=== PATIENT | male | born 1935 | race Two or more races ===

== ENCOUNTER 2017-11-04 09:21 | Inpatient (IN) | payer MEDICARE ==
[~2017-11-04] VITALS: Ht 149.9 cm; Wt 44.9 kg
[2017-11-04 11:04] LABS: Basophils # (auto) 0.1 uL; Basophils % (auto) 0.5 % (0.0-2.0); Eosinophils # (auto) 0.1 uL; Eosinophils % (auto) 1.2 % (0.0-7.0); Hematocrit 37.9 % (41.0-53.0); Hemoglobin 12.5 g/dL (13.5-17.5); Lymphocytes # (auto) 1.3 uL; Mean Corpuscular Hgb Conc. 32.9 g/dL (32.0-36.0); Mean Corpuscular Volume 88.2 fL (80.0-100.0); Monocytes % (auto) 9.8 % (0.0-12.0); Neutrophils # (auto) 8.1 uL; Neutrophils % (auto) 76.5 % (37.0-80.0); Nucleated Red Blood Cells % 0.1 %; Platelet Count (auto) 241 10^3/uL (140-450); Red Cell Distribution Width 15.2 % (11.8-14.3); White Blood Cell 10.6 10^3/uL (4.4-10.8)
[2017-11-04 11:14] LABS: INR 1.04 (0.9-1.15); Partial Thromboplastin Time 32.3 sec (23.78-33.04); Prothrombin Time 11.1 sec (9.27-12.13)
[2017-11-04 11:32] LABS: Albumin 3.3 g/dL (3.4-5.0); BUN/Creatinine Ratio 12.4; Bilirubin, Total 0.5 mg/dL (0.2-1.0); Calcium 8.7 mg/dL (8.5-10.1); Potassium 4.1 mmol/L (3.5-5.1); Total Protein 7.3 g/dL (6.4-8.2)
[2017-11-04 13:36] LABS: Urine Bacteria MOD /hpf (None Seen); Urine Blood Negative /uL (Negative); Urine Mucus FEW (None Seen); Urine Specific Gravity 1.018 (1.001-1.035); Urine WBC 37 /hpf (0 - 3)
[2017-11-04] MEDS ORDERED: DOCUSATE SOD 100 MG CAP PO PRN (14:45)
[2017-11-04] MEDS ORDERED: ACETAMINOPHEN 325 MG TAB PO PRN (14:45)
[2017-11-04] MEDS ORDERED: NITROGLYCERIN 0.4 MG SL TAB SL PRN (14:45)
[2017-11-04] MEDS ORDERED: MORPHINE SULF(PF) 0.5MG/ML 10ML VIAL IV PRN (14:45)
[2017-11-04] MEDS ORDERED: ASPirin-EC 81 mg tab PO ONE (14:45)
[2017-11-04] MEDS ORDERED: ONDANSETRON HCL 4 MG/2 ML VIAL IV PRN (14:45)
[2017-11-04] MEDS ORDERED: HYDROcodone-ACET 5/325MG TAB PO PRN (14:45)
[2017-11-04] MEDS ORDERED: TEMAZEPAM 15 MG CAP PO PRN (14:45)
[2017-11-04] MEDS ORDERED: FUROSEMIDE 40 MG/4 ML VIAL IV ONE (15:00)
[2017-11-04] MEDS ORDERED: LEVOFLOXACIN 500MG 100 ML IV ONE ×2 (15:00→15:15)
[2017-11-04] MEDS ORDERED: POTASSIUM CHL 10 Meq TABLET PO ONE (15:00)
[2017-11-04 17:35] VITALS: BP 131/74
[2017-11-04] MEDS ORDERED: TICA90TA PO (21:00)
[2017-11-04] MEDS ORDERED: ATO40T PO (21:00)
[2017-11-04] MEDS ORDERED: ASPI81CH43 PO (21:00)
[2017-11-04 21:50] VITALS: BP 141/67
[2017-11-04] MEDS ORDERED: [UNRECOGNIZED DRUG - REMARK] PO SCH (22:00)
[2017-11-04] MEDS: SPIRONOLACTONE 25 MG TAB PO SCH (22:12)
[2017-11-04] MEDS: SODIUM CHLOR 0.9% PF (SALINE LOCK) 10ML VIAL/SYR IV SCH (22:12)
[2017-11-04] MEDS: TICAGRELOR 90 MG TAB PO SCH (22:13)
[2017-11-04] MEDS: ATORVASTATIN 20 MG TAB PO SCH (22:13)
[2017-11-04] MEDS: ENALAPRIL MALEATE 2.5 MG TAB PO SCH (22:13)
[2017-11-05] VITALS (7 sets, daily range): BP systolic 122–131; BP diastolic 59–75
[2017-11-05] MEDS: SODIUM CHLOR 0.9% PF (SALINE LOCK) 10ML VIAL/SYR IV SCH ×3 (05:45→22:56)
[2017-11-05 06:32] LABS: Basophils # (auto) 0.1 uL; Basophils % (auto) 0.6 % (0.0-2.0); Eosinophils # (auto) 0.2 uL; Eosinophils % (auto) 2.1 % (0.0-7.0); Hematocrit 35.6 % (41.0-53.0); Lymphocytes % (auto) 11.5 % (10.0-50.0); Mean Corpuscular Hemoglobin 29.3 pg (28.0-32.0); Mean Corpuscular Hgb Conc. 33.6 g/dL (32.0-36.0); Mean Corpuscular Volume 87.3 fL (80.0-100.0); Monocytes # (auto) 0.8 uL; Monocytes % (auto) 9.2 % (0.0-12.0); Neutrophils # (auto) 6.8 uL; Neutrophils % (auto) 76.6 % (37.0-80.0); Platelet Count (auto) 211 10^3/uL (140-450); Red Blood Cells 4.08 10^6/uL (4.5-5.90); Red Cell Distribution Width 14.9 % (11.8-14.3); White Blood Cell 8.9 10^3/uL (4.4-10.8)
[2017-11-05 06:56] LABS: Albumin 3.2 g/dL (3.4-5.0); BUN/Creatinine Ratio 15.2; Bilirubin, Total 0.6 mg/dL (0.2-1.0); Calcium 8.5 mg/dL (8.5-10.1); Potassium 3.6 mmol/L (3.5-5.1); Total Protein 6.6 g/dL (6.4-8.2)
[2017-11-05] MEDS ORDERED: FUROSEMIDE 40 MG/4 ML VIAL IV SCH (10:00)
[2017-11-05] MEDS ORDERED: LEVOFLOXACIN 500MG 100 ML IV SCH (10:00)
[2017-11-05] MEDS: POTASSIUM CHL 10 Meq TABLET PO SCH (10:43)
[2017-11-05] MEDS: ENALAPRIL MALEATE 2.5 MG TAB PO SCH ×2 (10:44→22:55)
[2017-11-05] MEDS: SPIRONOLACTONE 25 MG TAB PO SCH ×2 (10:44→22:56)
[2017-11-05] MEDS: ASPirin-EC 81 mg tab PO SCH (10:44)
[2017-11-05] MEDS: TICAGRELOR 90 MG TAB PO SCH ×2 (10:44→22:00)
[2017-11-05] MEDS: MULTIPLE VITAMIN TAB PO SCH (10:44)
[2017-11-05 18:51] LABS: Calcium 8.3 mg/dL (8.5-10.1); Potassium 3.8 mmol/L (3.5-5.1)
[2017-11-05] MEDS: predniSONE 20 MG TAB PO SCH (19:10)
[2017-11-05] MEDS: ALBUTEROL SULF 2.5 MG/0.5ML(0.5%) NEB SOLN NEB SCH (19:36)
[2017-11-05] MEDS: BUDESONIDE (INHALATION) 0.5 MG/2 ML NEB NEB SCH (19:37)
[2017-11-05] MEDS: IPRATROPIUM BROM 0.5 MG/2.5ML INH SOL NEB SCH (19:37)
[2017-11-05] MEDS: ATORVASTATIN 20 MG TAB PO SCH (22:55)
[2017-11-06] VITALS (8 sets, daily range): BP systolic 115–134; BP diastolic 24–72
[2017-11-06] MEDS: IPRATROPIUM BROM 0.5 MG/2.5ML INH SOL NEB SCH ×4 (00:35→19:48)
[2017-11-06] MEDS: ALBUTEROL SULF 2.5 MG/0.5ML(0.5%) NEB SOLN NEB SCH ×4 (00:35→19:47)
[2017-11-06] MEDS: BUDESONIDE (INHALATION) 0.5 MG/2 ML NEB NEB SCH ×2 (05:53→19:48)
[2017-11-06] MEDS: SODIUM CHLOR 0.9% PF (SALINE LOCK) 10ML VIAL/SYR IV SCH ×3 (06:00→21:59)
[2017-11-06] MEDS ORDERED: LEVOFLOXACIN 500 MG TAB PO SCH (10:00)
[2017-11-06] MEDS: cefTRIAXone 1GM/10ml IVPUSH 10 ML IV SCH (10:06)
[2017-11-06] MEDS: ENALAPRIL MALEATE 2.5 MG TAB PO SCH ×2 (10:07→22:00)
[2017-11-06] MEDS: predniSONE 20 MG TAB PO SCH (10:08)
[2017-11-06] MEDS: POTASSIUM CHL 10 Meq TABLET PO SCH (10:08)
[2017-11-06] MEDS: MULTIPLE VITAMIN TAB PO SCH (10:09)
[2017-11-06] MEDS: SPIRONOLACTONE 25 MG TAB PO SCH ×2 (10:09→21:59)
[2017-11-06] MEDS: ASPirin-EC 81 mg tab PO SCH (10:09)
[2017-11-06] MEDS: TICAGRELOR 90 MG TAB PO SCH ×2 (10:09→22:00)
[2017-11-06 11:11] LABS: Basophils # (auto) 0 uL; Basophils % (auto) 0.1 % (0.0-2.0); Eosinophils # (auto) 0 uL; Hematocrit 37.1 % (41.0-53.0); Hemoglobin 12.6 g/dL (13.5-17.5); Lymphocytes # (auto) 0.5 uL; Lymphocytes % (auto) 4.3 % (10.0-50.0); Mean Corpuscular Hemoglobin 29.8 pg (28.0-32.0); Mean Corpuscular Hgb Conc. 33.9 g/dL (32.0-36.0); Monocytes # (auto) 0.4 uL; Monocytes % (auto) 4.1 % (0.0-12.0); Neutrophils # (auto) 9.9 uL; Neutrophils % (auto) 91.5 % (37.0-80.0); Platelet Count (auto) 237 10^3/uL (140-450); Red Blood Cells 4.21 10^6/uL (4.5-5.90); White Blood Cell 10.8 10^3/uL (4.4-10.8)
[2017-11-06 11:24] LABS: Calcium 8.7 mg/dL (8.5-10.1); Potassium 3.7 mmol/L (3.5-5.1)
[2017-11-06] MEDS: ATORVASTATIN 20 MG TAB PO SCH (21:59)
[2017-11-07 05:23] VITALS: BP 119/64
[2017-11-07 05:59] LABS: Basophils # (auto) 0 uL; Basophils % (auto) 0.1 % (0.0-2.0); Eosinophils # (auto) 0 uL; Hematocrit 34.3 % (41.0-53.0); Hemoglobin 11.6 g/dL (13.5-17.5); Lymphocytes # (auto) 0.6 uL; Lymphocytes % (auto) 3.4 % (10.0-50.0); Mean Corpuscular Hemoglobin 29.2 pg (28.0-32.0); Mean Corpuscular Hgb Conc. 33.8 g/dL (32.0-36.0); Mean Corpuscular Volume 86.3 fL (80.0-100.0); Monocytes # (auto) 0.8 uL; Monocytes % (auto) 4.4 % (0.0-12.0); Neutrophils % (auto) 92.1 % (37.0-80.0); Platelet Count (auto) 230 10^3/uL (140-450); Red Blood Cells 3.97 10^6/uL (4.5-5.90); Red Cell Distribution Width 14.8 % (11.8-14.3); White Blood Cell 18.4 10^3/uL (4.4-10.8)
[2017-11-07 06:14] LABS: BUN/Creatinine Ratio 19.7; Calcium 8.7 mg/dL (8.5-10.1)
[2017-11-07] MEDS: SODIUM CHLOR 0.9% PF (SALINE LOCK) 10ML VIAL/SYR IV SCH ×2 (06:23→09:25)
[2017-11-07] MEDS: IPRATROPIUM BROM 0.5 MG/2.5ML INH SOL NEB SCH ×2 (07:10→12:27)
[2017-11-07] MEDS: ALBUTEROL SULF 2.5 MG/0.5ML(0.5%) NEB SOLN NEB SCH ×2 (07:10→12:26)
[2017-11-07] MEDS: BUDESONIDE (INHALATION) 0.5 MG/2 ML NEB NEB SCH (07:11)
[2017-11-07 07:30] VITALS: BP 125/66
[2017-11-07 09:00] VITALS: BP 125/66
[2017-11-07] MEDS: ENALAPRIL MALEATE 2.5 MG TAB PO SCH (09:26)
[2017-11-07] MEDS: predniSONE 20 MG TAB PO SCH (09:26)
[2017-11-07] MEDS: cefTRIAXone 1GM/10ml IVPUSH 10 ML IV SCH (09:26)
[2017-11-07] MEDS: ASPirin-EC 81 mg tab PO SCH (09:27)
[2017-11-07] MEDS: MULTIPLE VITAMIN TAB PO SCH (09:27)
[2017-11-07] MEDS: POTASSIUM CHL 10 Meq TABLET PO SCH (09:27)
[2017-11-07] MEDS: SPIRONOLACTONE 25 MG TAB PO SCH (09:27)
[2017-11-07] MEDS: TICAGRELOR 90 MG TAB PO SCH (09:28)
[2017-11-07] MEDS ORDERED: FUROSEMIDE 40 MG TAB PO SCH (10:00)
[2017-11-07 13:00] VITALS: BP 126/62
[2017-11-07 14:08] VITALS: BP 125/66
== END 2017-11-07 15:00 | disposition home or self-care (01) | DRG 291 ==
LOC: ER 09:21 → TELE 09:22 → TELE-WESTW 17:06
PROVIDERS: ADMIT Internal Medicine; ATTEND Internal Medicine Pulmonary Disease
DX: I50.43 Acute on chronic combined systolic (congestive) and diastolic (congestive) heart failure (principal); J96.00 Acute respiratory failure, unspecified whether with hypoxia or hypercapnia; J44.1 Chronic obstructive pulmonary disease with (acute) exacerbation; N39.0 Urinary tract infection, site not specified; E44.0 Moderate protein-calorie malnutrition; I69.351 Hemiplegia and hemiparesis following cerebral infarction affecting right dominant side; N18.3 Chronic kidney disease, stage 3 (moderate); I25.10 Atherosclerotic heart disease of native coronary artery without angina pectoris; I25.5 Ischemic cardiomyopathy; I73.9 Peripheral vascular disease, unspecified; R00.1 Bradycardia, unspecified; B96.20 Unspecified Escherichia coli [E. coli] as the cause of diseases classified elsewhere; I70.0 Atherosclerosis of aorta; D63.8 Anemia in other chronic diseases classified elsewhere; E78.5 Hyperlipidemia, unspecified; I25.2 Old myocardial infarction; Z68.20 Body mass index [BMI] 20.0-20.9, adult; Z95.5 Presence of coronary angioplasty implant and graft; Z88.8 Allergy status to other drugs, medicaments and biological substances; Z88.2 Allergy status to sulfonamides; Z79.82 Long term (current) use of aspirin; Z79.899 Other long term (current) drug therapy
CPT/HCPCS: 36415; 36600; 71045; 71046; 78582; 80048; 80053; 81001; 82805; 83880; 84484; 85025; 85610; 85730; 87086; 87088; 87186; 93005; 93306; 94640; 96365; 96375; J1956

== ENCOUNTER → 2017-11-19 | Outpatient (CLI) | payer MEDICARE ==
[~2017-11-19] MED LIST: ASPI81CH43 PO; ATO40T PO; TICA90TA PO
[2017-11-19 13:05] LABS: BUN/Creatinine Ratio 22.4; Potassium 3.5 mmol/L (3.5-5.1)
== END | disposition home or self-care (01) ==
LOC: LAB 11:43
PROVIDERS: ATTEND Internal Medicine Cardiovascular Disease
DX: I25.5 Ischemic cardiomyopathy (principal); I25.10 Atherosclerotic heart disease of native coronary artery without angina pectoris; E78.5 Hyperlipidemia, unspecified; I50.43 Acute on chronic combined systolic (congestive) and diastolic (congestive) heart failure; N18.3 Chronic kidney disease, stage 3 (moderate); Z79.899 Other long term (current) drug therapy
CPT/HCPCS: 36415; 80048; 83880

== ENCOUNTER → 2018-01-23 | Outpatient (CLI) | payer MEDICARE ==
[~2018-01-23] MED LIST changes: +ALBUTEROL SULF 2.5 MG/0.5ML(0.5%) NEB SOLN ONE
== END | disposition home or self-care (01) ==
LOC: RT 08:35
PROVIDERS: ATTEND Internal Medicine Pulmonary Disease
DX: J44.9 Chronic obstructive pulmonary disease, unspecified (principal)
CPT/HCPCS: 94060

== ENCOUNTER → 2018-02-03 | Outpatient (CLI) | payer MEDICARE ==
[~2018-02-03] MED LIST changes: -ALBUTEROL SULF 2.5 MG/0.5ML(0.5%) NEB SOLN ONE
[2018-02-03 13:17] LABS: Alanine Aminotransferase 27 U/L (16-61); Albumin 3.4 g/dL (3.4-5.0); Alkaline Phosphatase 125 U/L (45-117); Aspartate Aminotransferase 21 U/L (15-37); Bilirubin, Direct < 0.1 mg/dL (0-0.2); Bilirubin, Total 0.3 mg/dL (0.2-1.0); Total Protein 7.2 g/dL (6.4-8.2)
== END | disposition home or self-care (01) ==
LOC: LAB 12:20
PROVIDERS: ATTEND Internal Medicine
DX: I70.218 Atherosclerosis of native arteries of extremities with intermittent claudication, other extremity (principal); I25.5 Ischemic cardiomyopathy; J44.9 Chronic obstructive pulmonary disease, unspecified; Z88.0 Allergy status to penicillin; Z88.2 Allergy status to sulfonamides
CPT/HCPCS: 36415; 80076

== ENCOUNTER → 2018-03-06 | Outpatient (CLI) | payer MEDICARE | END | disposition home or self-care (01) | LOC: XY 08:47 | PROVIDERS: ATTEND Internal Medicine | DX: I77.1 Stricture of artery (principal); I73.9 Peripheral vascular disease, unspecified | CPT/HCPCS: 93925 ==

== ENCOUNTER 2018-03-19 09:41 | Inpatient (IN) | payer MEDICARE ==
[~2018-03-19] VITALS: Ht 149.9 cm; Wt 26.8 kg
[~2018-03-19 09:41] MED LIST changes: +CLOP75TA28 PO; +ENAL2.5T PO; +SPIR25TA88 PO; -TICA90TA PO
[2018-03-19] MEDS ORDERED: MIDAZOLAM HCL 1MG/1ML-2 ML VIAL ONE ×2 (12:22→14:07)
[2018-03-19] MEDS ORDERED: fentaNYL CITRATE 100 MCG/2 ML VL ONE (12:22)
[2018-03-19] MEDS ORDERED: SODIUM CHL 0.9% 50 ML ONE (12:29)
[2018-03-19] MEDS ORDERED: ANGIOMAX 250 MG VIAL IV ONE (12:29)
[2018-03-19] MEDS ORDERED: IODIXANOL 320MG/ML 100ML BTL IV ONE ×2 (13:35→14:41)
[2018-03-19] MEDS ORDERED: ONDANSETRON HCL 4 MG/2 ML VIAL IV PRN (15:00)
[2018-03-19] MEDS ORDERED: ACETAMINOPHEN 500 MG TAB PO PRN (15:00)
[2018-03-19] MEDS ORDERED: MORPHINE SULFATE 4 MG/ML SYR/VIAL IV PRN ×2 (15:00)
[2018-03-19] MEDS ORDERED: HYDROcodone-ACET 5/325MG TAB PO PRN (15:00)
[2018-03-19 18:32] VITALS: BP 154/96
[2018-03-19 22:00] VITALS: BP 118/60
[2018-03-19] MEDS: SPIRONOLACTONE 25 MG TAB PO SCH (23:45)
[2018-03-19] MEDS: ATORVASTATIN 20 MG TAB PO SCH (23:45)
[2018-03-19] MEDS: ENALAPRIL MALEATE 2.5 MG TAB PO SCH (23:45)
[2018-03-20 05:00] VITALS: BP 120/63
[2018-03-20 07:34] VITALS: BP 139/61
[2018-03-20 07:44] LABS: Calcium 8.6 mg/dL (8.5-10.1); Potassium 3.6 mmol/L (3.5-5.1)
[2018-03-20 07:46] LABS: BUN/Creatinine Ratio 15.2
[2018-03-20 08:00] VITALS: BP 139/61
[2018-03-20 08:54] LABS: Basophils # (auto) 0 uL; Basophils % (auto) 0.2 % (0.0-2.0); Eosinophils # (auto) 0.1 uL; Eosinophils % (auto) 1.2 % (0.0-7.0); Hematocrit 39.5 % (41.0-53.0); Hemoglobin 12.7 g/dL (13.5-17.5); Lymphocytes # (auto) 1.2 uL; Lymphocytes % (auto) 12.1 % (10.0-50.0); Mean Corpuscular Hemoglobin 27.5 pg (28.0-32.0); Mean Corpuscular Hgb Conc. 32.2 g/dL (32.0-36.0); Mean Corpuscular Volume 85.5 fL (80.0-100.0); Monocytes # (auto) 0.7 uL; Monocytes % (auto) 7.5 % (0.0-12.0); Neutrophils # (auto) 7.7 uL; Platelet Count (auto) 176 10^3/uL (140-450); Red Blood Cells 4.62 10^6/uL (4.5-5.90); White Blood Cell 9.8 10^3/uL (4.4-10.8)
[2018-03-20] MEDS: CLOPIDOGREL BISULFATE 75 MG TAB PO SCH (09:59)
[2018-03-20] MEDS: SPIRONOLACTONE 25 MG TAB PO SCH ×2 (10:00→23:27)
[2018-03-20] MEDS: ENALAPRIL MALEATE 2.5 MG TAB PO SCH ×2 (10:00→23:28)
[2018-03-20] MEDS: ASPirin 81 mg TAB PO SCH (10:00)
[2018-03-20 11:29] VITALS: BP 124/66
[2018-03-20 16:44] VITALS: BP 132/66
[2018-03-20 22:00] VITALS: BP 116/56
[2018-03-20] MEDS: ATORVASTATIN 20 MG TAB PO SCH (23:27)
[2018-03-21 04:50] VITALS: BP 91/54
[2018-03-21 04:52] VITALS: BP 108/48
[2018-03-21 05:31] LABS: Basophils # (auto) 0 uL; Basophils % (auto) 0.5 % (0.0-2.0); Eosinophils # (auto) 0.2 uL; Eosinophils % (auto) 2.3 % (0.0-7.0); Hematocrit 36.6 % (41.0-53.0); Hemoglobin 12.2 g/dL (13.5-17.5); Lymphocytes # (auto) 1.4 uL; Lymphocytes % (auto) 16.2 % (10.0-50.0); Mean Corpuscular Hemoglobin 28.2 pg (28.0-32.0); Mean Corpuscular Hgb Conc. 33.2 g/dL (32.0-36.0); Mean Corpuscular Volume 84.8 fL (80.0-100.0); Monocytes # (auto) 0.9 uL; Monocytes % (auto) 10.4 % (0.0-12.0); Neutrophils # (auto) 6.1 uL; Neutrophils % (auto) 70.6 % (37.0-80.0); Platelet Count (auto) 171 10^3/uL (140-450); Red Blood Cells 4.32 10^6/uL (4.5-5.90); Red Cell Distribution Width 17.1 % (11.8-14.3); White Blood Cell 8.6 10^3/uL (4.4-10.8)
[2018-03-21 05:58] LABS: Albumin 3.1 g/dL (3.4-5.0); BUN/Creatinine Ratio 13.1; Calcium 8.1 mg/dL (8.5-10.1); Potassium 3.6 mmol/L (3.5-5.1)
[2018-03-21 06:01] LABS: Bilirubin, Total 0.6 mg/dL (0.2-1.0); Total Protein 6.5 g/dL (6.4-8.2)
[2018-03-21 07:30] VITALS: BP 109/55
[2018-03-21 07:47] LABS: INR 1.04 (0.9-1.15); Prothrombin Time 11.1 sec (9.27-12.13)
[2018-03-21 08:00] VITALS: BP 109/55
[2018-03-21] MEDS: ASPirin 81 mg TAB PO SCH (09:02)
[2018-03-21] MEDS: ENALAPRIL MALEATE 2.5 MG TAB PO SCH ×2 (09:02→21:21)
[2018-03-21] MEDS: SPIRONOLACTONE 25 MG TAB PO SCH ×2 (09:02→21:19)
[2018-03-21] MEDS: CLOPIDOGREL BISULFATE 75 MG TAB PO SCH (09:02)
[2018-03-21] MEDS ORDERED: fentaNYL CITRATE 100 MCG/2 ML VL ONE (09:09)
[2018-03-21] MEDS ORDERED: ANGIOMAX 250 MG VIAL IV ONE ×2 (09:09→11:01)
[2018-03-21] MEDS ORDERED: MIDAZOLAM HCL 1MG/1ML-2 ML VIAL ONE (09:09)
[2018-03-21] MEDS ORDERED: LIDOCAINE 2%HCL (LOCAL ANESTH.) INJ 20ML MDV ONE (09:09)
[2018-03-21] MEDS ORDERED: IODIXANOL 320MG/ML 100ML BTL IV ONE (09:10)
[2018-03-21] MEDS ORDERED: SODIUM CHL 0.9% 50 ML ONE ×2 (09:10→11:01)
[2018-03-21 13:46] LABS: Urine Bacteria FEW /hpf (None Seen); Urine Blood TRACE /uL (Negative); Urine Mucus FEW (None Seen); Urine WBC 4 /hpf (0 - 3)
[2018-03-21 13:53] LABS: Urine Specific Gravity > 1.050 (1.001-1.035)
[2018-03-21 16:48] VITALS: BP 145/67
[2018-03-21] MEDS: ATORVASTATIN 20 MG TAB PO SCH (21:18)
[2018-03-21 21:36] VITALS: BP 114/54
[2018-03-22 05:11] VITALS: BP 124/60
[2018-03-22 08:00] VITALS: BP 135/68
[2018-03-22 09:00] VITALS: BP 135/68
[2018-03-22] MEDS: CLOPIDOGREL BISULFATE 75 MG TAB PO SCH (09:09)
[2018-03-22] MEDS: SPIRONOLACTONE 25 MG TAB PO SCH (09:10)
[2018-03-22] MEDS: ENALAPRIL MALEATE 2.5 MG TAB PO SCH (09:10)
[2018-03-22] MEDS: ASPirin 81 mg TAB PO SCH (09:10)
[2018-03-22 13:11] VITALS: BP 134/59
== END 2018-03-22 14:00 | disposition home or self-care (01) | DRG 271 ==
LOC: CATH 09:41 → TELE-WESTW 09:42
PROVIDERS: ADMIT Internal Medicine; ATTEND Internal Medicine
PROC: 047N3D1 Dilation of Left Popliteal Artery with Intraluminal Device, using Drug-Coated Balloon, Percutaneous Approach (ICD-10-PCS; principal; 2018-03-19)
PROC: 04CL3ZZ Extirpation of Matter from Left Femoral Artery, Percutaneous Approach (ICD-10-PCS; 2018-03-19)
PROC: 047L3D1 Dilation of Left Femoral Artery with Intraluminal Device, using Drug-Coated Balloon, Percutaneous Approach (ICD-10-PCS; 2018-03-19)
PROC: 04CN3ZZ Extirpation of Matter from Left Popliteal Artery, Percutaneous Approach (ICD-10-PCS; 2018-03-19)
PROC: 04CS3ZZ Extirpation of Matter from Left Posterior Tibial Artery, Percutaneous Approach (ICD-10-PCS; 2018-03-19)
PROC: B41G1ZZ Fluoroscopy of Left Lower Extremity Arteries using Low Osmolar Contrast (ICD-10-PCS; 2018-03-19)
PROC: B41F1ZZ Fluoroscopy of Right Lower Extremity Arteries using Low Osmolar Contrast (ICD-10-PCS; 2018-03-19)
PROC: 047K3Z1 Dilation of Right Femoral Artery using Drug-Coated Balloon, Percutaneous Approach (ICD-10-PCS; 2018-03-21)
PROC: 047C3Z1 Dilation of Right Common Iliac Artery using Drug-Coated Balloon, Percutaneous Approach (ICD-10-PCS; 2018-03-21)
PROC: 047M3Z1 Dilation of Right Popliteal Artery using Drug-Coated Balloon, Percutaneous Approach (ICD-10-PCS; 2018-03-21)
PROC: 04CK3ZZ Extirpation of Matter from Right Femoral Artery, Percutaneous Approach (ICD-10-PCS; 2018-03-21)
PROC: 04CM3ZZ Extirpation of Matter from Right Popliteal Artery, Percutaneous Approach (ICD-10-PCS; 2018-03-21)
PROC: 04CC3ZZ Extirpation of Matter from Right Common Iliac Artery, Percutaneous Approach (ICD-10-PCS; 2018-03-21)
PROC: B41G1ZZ Fluoroscopy of Left Lower Extremity Arteries using Low Osmolar Contrast (ICD-10-PCS; 2018-03-21)
PROC: B41F1ZZ Fluoroscopy of Right Lower Extremity Arteries using Low Osmolar Contrast (ICD-10-PCS; 2018-03-21)
PROC: 3E053PZ Introduction of Platelet Inhibitor into Peripheral Artery, Percutaneous Approach (ICD-10-PCS; 2018-03-21)
DX: I70.211 Atherosclerosis of native arteries of extremities with intermittent claudication, right leg (principal); I74.3 Embolism and thrombosis of arteries of the lower extremities; I99.8 Other disorder of circulatory system; I25.10 Atherosclerotic heart disease of native coronary artery without angina pectoris; J45.909 Unspecified asthma, uncomplicated; I12.9 Hypertensive chronic kidney disease with stage 1 through stage 4 chronic kidney disease, or unspecified chronic kidney disease; N18.9 Chronic kidney disease, unspecified; Z88.0 Allergy status to penicillin; Z88.2 Allergy status to sulfonamides; I70.212 Atherosclerosis of native arteries of extremities with intermittent claudication, left leg
CPT/HCPCS: 36415; 71045; 80048; 80053; 81001; 85025; 85610; 86850; 86900; 86901; 99152; A6257; C2623; G0378; J2250; Q9967

== ENCOUNTER 2018-04-09 07:34 | Emergency (ER) | payer MEDICARE ==
[~2018-04-09] VITALS: Ht 149.9 cm; Wt 45.4 kg
[2018-04-09 09:55] VITALS: BP 151/63
== END 2018-04-09 11:10 | disposition home or self-care (01) ==
LOC: ER 07:39
DX: M25.571 Pain in right ankle and joints of right foot (principal); I25.10 Atherosclerotic heart disease of native coronary artery without angina pectoris; E78.5 Hyperlipidemia, unspecified; I25.2 Old myocardial infarction; I50.9 Heart failure, unspecified; Z88.0 Allergy status to penicillin; Z88.2 Allergy status to sulfonamides; Z79.01 Long term (current) use of anticoagulants; Z79.82 Long term (current) use of aspirin; Z79.899 Other long term (current) drug therapy; Z86.73 Personal history of transient ischemic attack (TIA), and cerebral infarction without residual deficits; Z98.61 Coronary angioplasty status; Z87.891 Personal history of nicotine dependence
CPT/HCPCS: 93971

== ENCOUNTER → 2018-08-07 | Outpatient (CLI) | payer MEDICARE ==
[2018-08-07 08:41] LABS: Calcium 9.4 mg/dL (8.5-10.1)
[2018-08-07 08:48] LABS: Albumin 3.9 g/dL (3.4-5.0); BUN/Creatinine Ratio 15.8; Bilirubin, Total 0.5 mg/dL (0.2-1.0)
== END | disposition home or self-care (01) ==
LOC: LAB 07:57
PROVIDERS: ATTEND Internal Medicine
DX: J44.9 Chronic obstructive pulmonary disease, unspecified (principal); E78.5 Hyperlipidemia, unspecified; I11.0 Hypertensive heart disease with heart failure; I50.9 Heart failure, unspecified; R79.89 Other specified abnormal findings of blood chemistry
CPT/HCPCS: 36415; 80053; 80061; 82550; 83036

== ENCOUNTER → 2018-08-20 | Outpatient (CLI) | payer MEDICARE | END | disposition home or self-care (01) | LOC: LAB 11:12 | PROVIDERS: ATTEND Internal Medicine | DX: E11.9 Type 2 diabetes mellitus without complications (principal) | CPT/HCPCS: 82043 ==

== ENCOUNTER → 2018-09-09 | Outpatient (CLI) | payer MEDICARE | END | disposition home or self-care (01) | LOC: XY 07:38 | PROVIDERS: ATTEND Internal Medicine | DX: I73.9 Peripheral vascular disease, unspecified (principal); M79.605 Pain in left leg | CPT/HCPCS: 93925 ==

== ENCOUNTER → 2019-01-22 | Outpatient (CLI) | payer MEDICARE ==
[2019-01-22 09:07] LABS: Calcium 9.3 mg/dL (8.5-10.1); Potassium 4.4 mmol/L (3.5-5.1)
[2019-01-22 09:10] LABS: BUN/Creatinine Ratio 12.9
== END | disposition home or self-care (01) ==
LOC: LAB 08:10
PROVIDERS: ATTEND Internal Medicine
DX: E11.9 Type 2 diabetes mellitus without complications (principal)
CPT/HCPCS: 36415; 80048; 83036

== ENCOUNTER → 2019-02-13 | Outpatient (CLI) | payer MEDICARE | END | disposition home or self-care (01) | LOC: XYW 07:35 | PROVIDERS: ATTEND Internal Medicine | DX: I08.0 Rheumatic disorders of both mitral and aortic valves (principal); I73.9 Peripheral vascular disease, unspecified; I11.0 Hypertensive heart disease with heart failure; I50.9 Heart failure, unspecified | CPT/HCPCS: 93306 ==

== ENCOUNTER → 2019-03-10 | Outpatient (CLI) | payer MEDICARE ==
[2019-03-10 09:01] LABS: BUN/Creatinine Ratio 9.2; Calcium 9.4 mg/dL (8.5-10.1); Potassium 3.9 mmol/L (3.5-5.1)
== END | disposition home or self-care (01) ==
LOC: LAB 07:55
PROVIDERS: ATTEND Internal Medicine
DX: E11.9 Type 2 diabetes mellitus without complications (principal); I10 Essential (primary) hypertension
CPT/HCPCS: 36415; 80048

== ENCOUNTER → 2019-04-02 | Outpatient (CLI) | payer MEDICARE | END | disposition home or self-care (01) | LOC: LAB 07:54 | PROVIDERS: ATTEND Internal Medicine | DX: E11.9 Type 2 diabetes mellitus without complications (principal); I25.10 Atherosclerotic heart disease of native coronary artery without angina pectoris; I11.0 Hypertensive heart disease with heart failure; I50.9 Heart failure, unspecified; E78.5 Hyperlipidemia, unspecified; I25.2 Old myocardial infarction; Z86.73 Personal history of transient ischemic attack (TIA), and cerebral infarction without residual deficits; Z98.890 Other specified postprocedural states; Z87.891 Personal history of nicotine dependence; Z88.0 Allergy status to penicillin; Z88.2 Allergy status to sulfonamides | CPT/HCPCS: 36415; 83036 ==

== ENCOUNTER 2019-04-11 21:54 | Inpatient (IN) | payer MEDICARE ==
[~2019-04-11] VITALS: Ht 162.6 cm; Wt 54.4 kg
[2019-04-11] MEDS ORDERED: methylPREDNISolone SOD SUCC 125 MG/2 ML VL ONE (22:04)
[2019-04-11] MEDS ORDERED: FUROSEMIDE 20 MG/2 ML VIAL ONE (22:05)
[2019-04-11] MEDS ORDERED: FUROSEMIDE 20 MG/2 ML VIAL IV ONE (22:15)
[2019-04-11] MEDS ORDERED: methylPREDNISolone SOD SUCC 125 MG/2 ML VL IV ONE (22:15)
[2019-04-11 22:24] VITALS: BP 206/114
[2019-04-11 22:27] LABS: Basophils # (auto) 0.2 uL; Mean Corpuscular Hgb Conc. 32.1 g/dL (32.0-36.0); Monocytes # (auto) 1.4 uL
[2019-04-11 22:28] LABS: Eosinophils # (auto) 0.4 uL; Eosinophils % (auto) 2.3 % (0.0-7.0); Hematocrit 45.3 % (41.0-53.0); Hemoglobin 14.6 g/dL (13.5-17.5); Lymphocytes # (auto) 6.3 uL; Lymphocytes % (auto) 38.6 % (10.0-50.0); Mean Corpuscular Hemoglobin 26.8 pg (28.0-32.0); Mean Corpuscular Volume 83.3 fL (80.0-100.0); Monocytes % (auto) 8.6 % (0.0-12.0); Neutrophils # (auto) 8.1 uL; Neutrophils % (auto) 49.5 % (37.0-80.0); Platelet Count (auto) 216 10^3/uL (140-450); Red Blood Cells 5.43 10^6/uL (4.5-5.90); White Blood Cell 16.4 10^3/uL (4.4-10.8)
[2019-04-11 22:47] LABS: Anion Gap 9 (5-15); Blood Urea Nitrogen 16 mg/dL (7-18); Calcium 8.4 mg/dL (8.5-10.1); Carbon Dioxide 19 mmol/L (21-32); Chloride 111 mmol/L (98-107); Glucose 166 mg/dL (74-106); Magnesium 2.4 mg/dL (1.6-2.6); Potassium 4.1 mmol/L (3.5-5.1); Sodium 139 mmol/L (136-145)
[2019-04-11 22:49] LABS: Alanine Aminotransferase 34 U/L (16-61); Aspartate Aminotransferase 37 U/L (15-37); BUN/Creatinine Ratio 11.8; GFR African American 64 mL/min; GFR Non-African American 53 mL/min; INR 1.07 (0.9-1.15); Partial Thromboplastin Time 28.8 sec (23.64-32.05)
[2019-04-11 22:54] LABS: Alkaline Phosphatase 129 U/L (45-117); Bilirubin, Total 0.5 mg/dL (0.2-1.0); Total Protein 7.8 g/dL (6.4-8.2)
[2019-04-11] MEDS ORDERED: ONDANSETRON HCL 4 MG/2 ML VIAL ONE (23:13)
[2019-04-11] MEDS ORDERED: ONDANSETRON HCL 4 MG/2 ML VIAL IV ONE (23:15)
[2019-04-12 00:06] VITALS: BP 131/64
[2019-04-12] MEDS ORDERED: MORPHINE SULFATE 4 MG/ML SYR/VIAL IV PRN (02:00)
[2019-04-12] MEDS ORDERED: ACETAMINOPHEN 325 MG TAB PO PRN (02:00)
[2019-04-12] MEDS ORDERED: NITROGLYCERIN 0.4 MG SL TAB SL PRN (02:00)
[2019-04-12] MEDS ORDERED: DOCUSATE SOD 100 MG CAP PO PRN (02:00)
[2019-04-12] MEDS ORDERED: HYDROcodone-ACET 5/325MG TAB PO PRN (02:00)
[2019-04-12] MEDS ORDERED: ONDANSETRON HCL 4 MG/2 ML VIAL IV PRN (02:00)
[2019-04-12 02:13] LABS: Urine Bacteria MANY /hpf (None Seen); Urine Blood Negative /uL (Negative); Urine Specific Gravity 1.006 (1.001-1.035); Urine WBC 7 /hpf (0 - 3)
[2019-04-12 02:24] VITALS: BP 140/72
[2019-04-12] MEDS: cefTRIAXone 1GM/50ML D5W 50 ML IV SCH ×2 (02:50→10:43)
[2019-04-12] MEDS: AZITHROMYCIN 500MG/ 250ML 250 ML IV SCH ×2 (03:30→10:43)
[2019-04-12] MEDS ORDERED: ENALAPRIL MALEATE 2.5 MG TAB PO SCH (10:00)
[2019-04-12] MEDS: CLOPIDOGREL BISULFATE 75 MG TAB PO SCH (10:41)
[2019-04-12] MEDS: SPIRONOLACTONE 25 MG TAB PO SCH ×2 (10:41→22:01)
[2019-04-12] MEDS: ASPirin 81 mg TAB PO SCH (10:42)
[2019-04-12] MEDS: FUROSEMIDE 40 MG/4 ML VIAL IV SCH ×2 (10:42→22:00)
[2019-04-12] MEDS ORDERED: NITROGLYCERIN 0.2MG/HR TOPICAL PATCH TD ONE (12:30)
[2019-04-12 13:20] VITALS: BP 122/68
[2019-04-12] MEDS ORDERED: MORPHINE SULF INJ 2 MG/ML SYRINGE 1ML IV PRN (13:30)
[2019-04-12 15:03] LABS: Basophils # (auto) 0 uL; Basophils % (auto) 0.2 % (0.0-2.0); Eosinophils # (auto) 0 uL; Hematocrit 43.8 % (41.0-53.0); Lymphocytes # (auto) 0.7 uL; Lymphocytes % (auto) 4.9 % (10.0-50.0); Mean Corpuscular Hemoglobin 26.6 pg (28.0-32.0); Mean Corpuscular Hgb Conc. 31.9 g/dL (32.0-36.0); Mean Corpuscular Volume 83.4 fL (80.0-100.0); Monocytes # (auto) 0.3 uL; Monocytes % (auto) 2.3 % (0.0-12.0); Neutrophils # (auto) 13.4 uL; Neutrophils % (auto) 92.6 % (37.0-80.0); Platelet Count (auto) 187 10^3/uL (140-450); Red Blood Cells 5.26 10^6/uL (4.5-5.90); Red Cell Distribution Width 17.4 % (11.8-14.3); White Blood Cell 14.5 10^3/uL (4.4-10.8)
[2019-04-12 15:25] LABS: BUN/Creatinine Ratio 12.8; Potassium 4.4 mmol/L (3.5-5.1)
[2019-04-12 17:00] VITALS: BP 129/71
[2019-04-12 20:00] VITALS: BP 115/61
[2019-04-12 22:00] VITALS: BP 115/61
[2019-04-13 06:50] LABS: Basophils # (auto) 0 uL; Basophils % (auto) 0.3 % (0.0-2.0); Eosinophils # (auto) 0 uL; Eosinophils % (auto) 0.1 % (0.0-7.0); Hematocrit 40.1 % (41.0-53.0); Hemoglobin 13.5 g/dL (13.5-17.5); Lymphocytes # (auto) 1.6 uL; Lymphocytes % (auto) 9.3 % (10.0-50.0); Mean Corpuscular Hgb Conc. 33.6 g/dL (32.0-36.0); Mean Corpuscular Volume 80.3 fL (80.0-100.0); Monocytes # (auto) 1.2 uL; Neutrophils # (auto) 14.1 uL; Neutrophils % (auto) 83.3 % (37.0-80.0); Nucleated Red Blood Cells % 0.1 %; Platelet Count (auto) 186 10^3/uL (140-450); Red Blood Cells 4.99 10^6/uL (4.5-5.90); White Blood Cell 16.9 10^3/uL (4.4-10.8)
[2019-04-13 07:01] LABS: Albumin 3.7 g/dL (3.4-5.0); Calcium 8.9 mg/dL (8.5-10.1); Magnesium 2.2 mg/dL (1.6-2.6)
[2019-04-13 07:05] LABS: Bilirubin, Total 0.4 mg/dL (0.2-1.0); Total Protein 7.1 g/dL (6.4-8.2)
[2019-04-13] MEDS ORDERED: ADENOSINE 46 MG in GIVE UN-DILUTED 0 ML IV STA (08:14)
[2019-04-13 09:00] VITALS: BP 132/83
[2019-04-13 09:36] VITALS: BP 130/93
[2019-04-13] MEDS: NITROGLYCERIN 0.2MG/HR TOPICAL PATCH TD SCH (10:00)
[2019-04-13] MEDS ORDERED: LOSARTAN POTASSIUM 50 MG TAB PO SCH (10:00)
[2019-04-13] MEDS: cefTRIAXone 1GM/50ML D5W 50 ML IV SCH (10:54)
[2019-04-13] MEDS: ASPirin 81 mg TAB PO SCH (10:54)
[2019-04-13] MEDS: CLOPIDOGREL BISULFATE 75 MG TAB PO SCH (10:54)
[2019-04-13] MEDS: AZITHROMYCIN 500MG/ 250ML 250 ML IV SCH (10:54)
[2019-04-13] MEDS: SPIRONOLACTONE 25 MG TAB PO SCH ×2 (10:54→21:18)
[2019-04-13] MEDS: methylPREDNISolone SOD SUCC 40 MG/ML VL IV SCH ×3 (12:31→23:25)
[2019-04-13 13:00] VITALS: BP 127/69
[2019-04-13 17:00] VITALS: BP 139/85
[2019-04-13 20:10] VITALS: BP 127/69
[2019-04-13 22:00] VITALS: BP 139/77
[2019-04-13] MEDS ORDERED: ATORVASTATIN 20 MG TAB PO SCH (22:00)
[2019-04-14 05:00] VITALS: BP 155/82
[2019-04-14] MEDS: methylPREDNISolone SOD SUCC 40 MG/ML VL IV SCH (06:00)
[2019-04-14 06:43] LABS: BUN/Creatinine Ratio 25.2; Calcium 8.4 mg/dL (8.5-10.1); Magnesium 2.2 mg/dL (1.6-2.6); Potassium 3.9 mmol/L (3.5-5.1)
[2019-04-14 07:16] LABS: Basophils # (auto) 0 uL; Basophils % (auto) 0.1 % (0.0-2.0); Eosinophils # (auto) 0 uL; Hematocrit 41.7 % (41.0-53.0); Hemoglobin 13.4 g/dL (13.5-17.5); Lymphocytes # (auto) 0.7 uL; Mean Corpuscular Hemoglobin 27.1 pg (28.0-32.0); Mean Corpuscular Volume 84.4 fL (80.0-100.0); Monocytes # (auto) 0.2 uL; Monocytes % (auto) 1.5 % (0.0-12.0); Neutrophils # (auto) 11.4 uL; Neutrophils % (auto) 92.4 % (37.0-80.0); Platelet Count (auto) 180 10^3/uL (140-450); Red Blood Cells 4.94 10^6/uL (4.5-5.90); Red Cell Distribution Width 18.6 % (11.8-14.3); White Blood Cell 12.3 10^3/uL (4.4-10.8)
[2019-04-14 08:47] VITALS: BP 132/79
[2019-04-14] MEDS: ASPirin 81 mg TAB PO SCH (09:33)
[2019-04-14] MEDS: cefTRIAXone 1GM/50ML D5W 50 ML IV SCH (09:33)
[2019-04-14] MEDS: CLOPIDOGREL BISULFATE 75 MG TAB PO SCH (09:33)
[2019-04-14] MEDS: SPIRONOLACTONE 25 MG TAB PO SCH (09:33)
[2019-04-14] MEDS: NITROGLYCERIN 0.2MG/HR TOPICAL PATCH TD SCH (09:56)
[2019-04-14] MEDS ORDERED: AZITHROMYCIN 250 MG TAB PO SCH (10:00)
[2019-04-14 11:04] VITALS: BP 132/83
[2019-04-14] MEDS ORDERED: SACUBITRIL-VALSARTAN 24mg/26mg TAB PO SCH (23:00)
== END 2019-04-14 12:15 | disposition home or self-care (01) | DRG 291 ==
LOC: EDBD 21:54 → ER 21:58 → TELE 21:59 → TELE-CENTR 04-12 13:20
PROVIDERS: ADMIT Hospitalist; ATTEND Internal Medicine
PROC: 5A09357 Assistance with Respiratory Ventilation, Less than 24 Consecutive Hours, Continuous Positive Airway Pressure (ICD-10-PCS; principal; 2019-04-11)
DX: I11.0 Hypertensive heart disease with heart failure (principal); J18.9 Pneumonia, unspecified organism; N17.0 Acute kidney failure with tubular necrosis; E87.2 Acidosis; J44.1 Chronic obstructive pulmonary disease with (acute) exacerbation; N39.0 Urinary tract infection, site not specified; I50.43 Acute on chronic combined systolic (congestive) and diastolic (congestive) heart failure; I25.10 Atherosclerotic heart disease of native coronary artery without angina pectoris; T46.4X5A Adverse effect of angiotensin-converting-enzyme inhibitors, initial encounter; D72.829 Elevated white blood cell count, unspecified; R73.03 Prediabetes; I34.0 Nonrheumatic mitral (valve) insufficiency; E78.5 Hyperlipidemia, unspecified; I25.2 Old myocardial infarction; Z86.73 Personal history of transient ischemic attack (TIA), and cerebral infarction without residual deficits; Z87.891 Personal history of nicotine dependence
CPT/HCPCS: 36415; 36600; 71045; 71250; 78452; 80048; 80053; 81001; 82805; 82962; 83735; 83880; 84484; 85025; 85610; 85730; 93005; 93017; 93306; 94660; 96365; 96368; 96375; G0378; J0153; J0696; J2405

== ENCOUNTER → 2019-04-28 | Outpatient (CLI) | payer MEDICARE ==
[2019-04-28 09:10] LABS: Calcium 8.5 mg/dL (8.5-10.1); Potassium 4.4 mmol/L (3.5-5.1)
[2019-04-28 09:14] LABS: BUN/Creatinine Ratio 15.9
== END | disposition home or self-care (01) ==
LOC: LAB 07:36
PROVIDERS: ATTEND Internal Medicine
DX: J44.9 Chronic obstructive pulmonary disease, unspecified (principal); E11.9 Type 2 diabetes mellitus without complications; I50.9 Heart failure, unspecified
CPT/HCPCS: 36415; 80048; 83880

== ENCOUNTER → 2019-05-06 | Outpatient (CLI) | payer MEDICARE ==
[2019-05-06 10:44] LABS: Albumin 3.7 g/dL (3.4-5.0); Bilirubin, Direct 0.1 mg/dL (0-0.2)
[2019-05-06 10:48] LABS: Bilirubin, Total 0.4 mg/dL (0.2-1.0); Total Protein 7.5 g/dL (6.4-8.2)
== END | disposition home or self-care (01) ==
LOC: LAB 10:12
PROVIDERS: ATTEND Internal Medicine
DX: M79.10 Myalgia, unspecified site (principal); E78.5 Hyperlipidemia, unspecified
CPT/HCPCS: 36415; 80076; 82550

== ENCOUNTER → 2019-05-26 | Outpatient (CLI) | payer MEDICARE | END | disposition home or self-care (01) | LOC: LAB 07:48 | PROVIDERS: ATTEND Internal Medicine | DX: M79.10 Myalgia, unspecified site (principal) | CPT/HCPCS: 36415; 82550; 85652 ==

== ENCOUNTER → 2019-06-05 | Outpatient (CLI) | payer MEDICARE | END | disposition home or self-care (01) | LOC: XYW 07:19 | PROVIDERS: ATTEND Internal Medicine | DX: I08.3 Combined rheumatic disorders of mitral, aortic and tricuspid valves (principal); I10 Essential (primary) hypertension | CPT/HCPCS: 93306 ==

== ENCOUNTER 2019-06-19 12:09 | Inpatient (IN) | payer MEDICARE ==
[~2019-06-19] VITALS: Ht 149.9 cm; Wt 48.1 kg
[2019-06-19 13:18] LABS: Basophils # (auto) 0.1 uL; Basophils % (auto) 1.1 % (0.0-2.0); Eosinophils # (auto) 0.2 uL; Eosinophils % (auto) 1.9 % (0.0-7.0); Hematocrit 42.9 % (41.0-53.0); Hemoglobin 14.1 g/dL (13.5-17.5); Lymphocytes # (auto) 1.5 uL; Lymphocytes % (auto) 14.8 % (10.0-50.0); Mean Corpuscular Hemoglobin 27.8 pg (28.0-32.0); Mean Corpuscular Volume 84.3 fL (80.0-100.0); Monocytes # (auto) 0.9 uL; Monocytes % (auto) 9.2 % (0.0-12.0); Neutrophils # (auto) 7.4 uL; Platelet Count (auto) 211 10^3/uL (140-450); Red Blood Cells 5.09 10^6/uL (4.5-5.90); Red Cell Distribution Width 17.7 % (11.8-14.3); White Blood Cell 10.2 10^3/uL (4.4-10.8)
[2019-06-19 13:35] LABS: Albumin 3.7 g/dL (3.4-5.0); Anion Gap 8 (5-15); Blood Urea Nitrogen 20 mg/dL (7-18); Calcium 9.1 mg/dL (8.5-10.1); Carbon Dioxide 21 mmol/L (21-32); Chloride 110 mmol/L (98-107); Glucose 93 mg/dL (74-106); Potassium 4.3 mmol/L (3.5-5.1); Sodium 139 mmol/L (136-145)
[2019-06-19 13:41] LABS: Alanine Aminotransferase 16 U/L (16-61); Alkaline Phosphatase 101 U/L (45-117); Aspartate Aminotransferase 20 U/L (15-37); Bilirubin, Total 0.4 mg/dL (0.2-1.0); GFR African American 67 mL/min; GFR Non-African American 56 mL/min; Total Protein 7.2 g/dL (6.4-8.2)
[2019-06-19 13:42] LABS: BUN/Creatinine Ratio 15.3
[2019-06-19] MEDS ORDERED: NITROGLYCERIN 0.4 MG SL TAB SL PRN (15:30)
[2019-06-19] MEDS ORDERED: MORPHINE SULF INJ 2 MG/ML SYRINGE 1ML IV PRN (15:30)
[2019-06-19] MEDS ORDERED: ONDANSETRON HCL 4 MG/2 ML VIAL IV PRN (15:30)
[2019-06-19] MEDS ORDERED: TEMAZEPAM 15 MG CAP PO PRN (15:30)
[2019-06-19] MEDS ORDERED: ALBUTEROL SULF 2.5 MG/0.5ML(0.5%) NEB SOLN NEB PRN (15:30)
[2019-06-19] MEDS ORDERED: traMADol HCL 50 MG TAB PO PRN (15:30)
[2019-06-19] MEDS ORDERED: ACETAMINOPHEN 500 MG TAB PO PRN (15:30)
[2019-06-19] MEDS ORDERED: OSELTAMIVIR 30 MG CAP PO ONE (16:00)
[2019-06-19] MEDS: DOXYCYCLINE 100MG/250ML 250 ML IV SCH (16:04)
[2019-06-19] MEDS: IPRATROPIUM BROM 0.5 MG/2.5ML INH SOL NEB SCH ×2 (18:00→23:46)
[2019-06-19] MEDS: ALBUTEROL SULF 2.5 MG/0.5ML(0.5%) NEB SOLN NEB SCH ×2 (18:00→23:46)
[2019-06-19 18:02] LABS: CRP High Sensitivity 0.86 mg/dL (< 0.3)
--- NOTE | 2019-06-19 18:06 | NUR ---
recieved report from CATIE OVIEDO
--- NOTE | 2019-06-19 18:07 | NUR ---
called lab to have an influenza swab sent to floor
--- NOTE | 2019-06-19 18:46 | NUR ---
Telemetry admit from ER DILLON CEDILLO admitted to Telemetry unit after SBAR received. Patient oriented to NAOMI RAYO, primary RN, unit, room, bed, and unit policies regarding patient care and visiting hours. Patient now on continuous telemetry monitoring, tele box # [id number] and telemetry reading on arrival to unit is . Patient placed on bedside oxygen, weighed by bedscale and encouraged to call if they need something. All questions and concerns addressed, patient verbalized understanding. Note:
--- NOTE | 2019-06-19 19:30 | NUR ---
OPENING SHIFT NOTE Assumed care of patient, awake and alert x4. Patient denies pain or shortness of breath at this time. Instructed on plan of care and to call for assistance as needed, patient verbalized understanding. Bed is locked in lowest position, side rails x2 are up, call light is within reach, and bed alarm is on.
--- NOTE | 2019-06-19 21:19 | NUR ---
RECEIVED CALL FROM LAB RE: CRITICAL LAB RESULT This RN notified by lab courier Breanna Kirkpatrick, of positive lab results for Influenza B. Will notify hospitalist per protocol.
--- NOTE | 2019-06-19 21:58 | NUR ---
HOSPITALIST PAGED RE: CRITICAL LAB RESULT Hospitalist paged regarding critical lab result: Influenza Type B: positive. Patient is receiving Tamiflu 30mg PO BID. Will notify hospitalist per protocol. Awaiting call back.
[2019-06-19 22:00] VITALS: BP 154/76
--- NOTE | 2019-06-19 22:24 | NUR ---
RECEIVED CALL FROM HOSPITALIST RE: CRITICAL LAB RESULTS Notified MIK Glass of patient's positive Influenza B results. TALENT AGENT Glass aware that patient is receiving Tamiflu 30mg PO BID. No new orders received at this time.
[2019-06-19] MEDS: ENALAPRIL MALEATE 2.5 MG TAB PO SCH (22:28)
[2019-06-19] MEDS: CARVEDILOL 3.125 MG TAB PO SCH (22:30)
[2019-06-19] MEDS: OSELTAMIVIR 30 MG CAP PO SCH (22:32)
[2019-06-19] MEDS: SPIRONOLACTONE 25 MG TAB PO SCH (22:39)
[2019-06-19] MEDS: ATORVASTATIN 20 MG TAB PO SCH (22:40)
[2019-06-19] MEDS: SODIUM CHLOR 0.9% PF (SALINE LOCK) 10ML VIAL/SYR IV SCH (22:41)
--- NOTE | 2019-06-20 03:30 | NUR ---
RESPIRATORY CULTURE COLLECTED AND SENT TO LAB Respiratory culture collected and sent to lab.
[2019-06-20 03:49] VITALS: BP 149/92
[2019-06-20] MEDS: DOXYCYCLINE 100MG/250ML 250 ML IV SCH ×2 (04:11→15:20)
[2019-06-20 05:00] VITALS: BP 146/78
--- NOTE | 2019-06-20 05:00 | NUR ---
CHEST PAIN Patient called complaining of non-radiating chest pain. Patient described chest pain as a pressure like feeling and complained of shortness of breath. Patient denied nausea at the time. EKG was performed, results identified "Sinus rhythm, left atrial enlargement, right bundle block branch, inferior infarct, old, abnorm T, probable ischemia, anterolateral lds," EKG was reviewed and signed off by MIK Glass, EKG placed in hardchart. Vital signs upon assessment were the following: BP: 148/86, HR: 76, RR: 18, SPO2: 100% on 1L NC, and TEMP: 98.3. Patient was medicated with nitroglycerin 0.4mg sublingual x1 (see eMAR), patient reported chest pain relief after 5 minutes (pain 0/10). Vital signs post nitroglycerin administration were the following: BP: 141/74, HR: 77, RR: 18, and SPO2: 99% on 1L NC. Patient is currently laying in bed with even and unlabored respirations, no signs/symptoms of distress or shortness of breath noted or reported by patient. Bed is locked in lowest position, side rails x 2 are up, call light is within reach, and bed alarm is on. Patient instructed to call this RN for assistance as needed or if chest pain or shortness of breath returns, patient verbalized understanding.
[2019-06-20] MEDS: IPRATROPIUM BROM 0.5 MG/2.5ML INH SOL NEB SCH ×4 (05:54→20:09)
[2019-06-20] MEDS: ALBUTEROL SULF 2.5 MG/0.5ML(0.5%) NEB SOLN NEB SCH ×4 (05:54→20:09)
[2019-06-20] MEDS: SODIUM CHLOR 0.9% PF (SALINE LOCK) 10ML VIAL/SYR IV SCH ×2 (06:22→14:00)
[2019-06-20 07:15] LABS: Albumin 3.3 g/dL (3.4-5.0); Anion Gap 9 (5-15); Blood Urea Nitrogen 19 mg/dL (7-18); Calcium 8.4 mg/dL (8.5-10.1); Carbon Dioxide 21 mmol/L (21-32); Chloride 110 mmol/L (98-107); Glucose 102 mg/dL (74-106); Potassium 4.4 mmol/L (3.5-5.1); Sodium 140 mmol/L (136-145)
[2019-06-20 07:17] LABS: BUN/Creatinine Ratio 16.2; GFR African American 77 mL/min; GFR Non-African American 63 mL/min
[2019-06-20 07:22] LABS: Alanine Aminotransferase 16 U/L (16-61); Alkaline Phosphatase 95 U/L (45-117); Aspartate Aminotransferase 18 U/L (15-37); Bilirubin, Total 0.5 mg/dL (0.2-1.0); Total Protein 6.8 g/dL (6.4-8.2)
[2019-06-20 09:00] VITALS: BP 140/71
[2019-06-20] MEDS: OSELTAMIVIR 30 MG CAP PO SCH ×2 (09:09→22:52)
[2019-06-20] MEDS: ENOXAPARIN SOD 30 MG/0.3 ML SYRINGE SC SCH (09:11)
[2019-06-20] MEDS: NITROGLYCERIN 0.2MG/HR TOPICAL PATCH TD SCH (09:11)
[2019-06-20] MEDS: CARVEDILOL 3.125 MG TAB PO SCH ×2 (09:11→22:00)
[2019-06-20] MEDS: SPIRONOLACTONE 25 MG TAB PO SCH ×2 (09:12→22:51)
[2019-06-20] MEDS: ENALAPRIL MALEATE 2.5 MG TAB PO SCH ×2 (09:12→22:00)
[2019-06-20] MEDS: ASPirin 81 mg TAB PO SCH (09:12)
[2019-06-20] MEDS: CLOPIDOGREL BISULFATE 75 MG TAB PO SCH (09:12)
[2019-06-20] MEDS ORDERED: FUROSEMIDE 40 MG/4 ML VIAL IV SCH (10:00)
--- NOTE | 2019-06-20 12:32 | NUR ---
md johnson rounded on patient updated pt on plan of care
[2019-06-20 13:00] VITALS: BP 124/72
--- NOTE | 2019-06-20 13:30 | NUR ---
pt confused got out of bed and was urinating in bedside water pitcher and the floor, gave pt his urinal to urinate and then placed back into into bed call light within reach bed alarm on
--- NOTE | 2019-06-20 16:55 | NUR ---
md shin rounded on patient updated pt on plan of care, new orders noted
[2019-06-20 17:00] VITALS: BP 125/66
--- NOTE | 2019-06-20 19:56 | NUR ---
RT NOTE PT WAS SEEN BY RT FOR HHN TX SEVERAL TIMES. PT FIRST IS EATING, THEN IN RESTROOM AND THEN GETTING ASSESSED BY RN. NO SOB OR DISTRESS NOTED. MEDICATION HELD AT THIS TIME. RN WILL CALL IF TX NEEDED BEFORE NEXT SCHEDULED TIME. CONT ORDERED Addendum: 06/20/19 at 2156 by Lottie Hernadez RT Amended: Links added.
[2019-06-20] MEDS: FUROSEMIDE 40 MG/4 ML VIAL IV SCH (22:00)
[2019-06-20] MEDS: ATORVASTATIN 20 MG TAB PO SCH (22:52)
[2019-06-20 22:58] VITALS: BP 103/60
[2019-06-21] MEDS: IPRATROPIUM BROM 0.5 MG/2.5ML INH SOL NEB SCH ×2 (00:11→06:53)
[2019-06-21] MEDS: ALBUTEROL SULF 2.5 MG/0.5ML(0.5%) NEB SOLN NEB SCH ×2 (00:11→06:53)
--- NOTE | 2019-06-21 00:18 | NUR ---
RT NOTE PT WAS SEEN BY RT FOR HHN TX. PT TOLERATES WELL VIA MASK. NO ADVERSE REACTION NOTED. CONT ORDERED Addendum: 06/21/19 at 0059 by Lottie Hernadez RT Amended: Links added.
[2019-06-21] MEDS: SODIUM CHLOR 0.9% PF (SALINE LOCK) 10ML VIAL/SYR IV SCH ×2 (00:42→05:01)
[2019-06-21 04:57] VITALS: BP 126/75
[2019-06-21] MEDS: DOXYCYCLINE 100MG/250ML 250 ML IV SCH (05:01)
[2019-06-21 09:00] VITALS: BP 141/78
[2019-06-21] MEDS: FUROSEMIDE 40 MG/4 ML VIAL IV SCH (09:31)
[2019-06-21] MEDS: OSELTAMIVIR 30 MG CAP PO SCH (09:31)
[2019-06-21] MEDS: CARVEDILOL 3.125 MG TAB PO SCH (09:32)
[2019-06-21] MEDS: CLOPIDOGREL BISULFATE 75 MG TAB PO SCH (09:32)
[2019-06-21] MEDS: SPIRONOLACTONE 25 MG TAB PO SCH (09:33)
[2019-06-21] MEDS: ENALAPRIL MALEATE 2.5 MG TAB PO SCH (09:33)
[2019-06-21] MEDS: ENOXAPARIN SOD 30 MG/0.3 ML SYRINGE SC SCH (09:33)
[2019-06-21] MEDS: NITROGLYCERIN 0.2MG/HR TOPICAL PATCH TD SCH (09:33)
[2019-06-21] MEDS: ASPirin 81 mg TAB PO SCH (09:34)
--- NOTE | 2019-06-21 09:44 | NUR ---
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
[2019-06-21 10:04] VITALS: BP 141/78
--- NOTE | 2019-06-21 10:16 | NUR ---
Herbologist-I received a page from nurse Medina letting me know that this patient has order to discharge back to [facility]. I called [facility] [phone] and spoke with Merle, she let me know that patient lives in their independent section and they do not need to be notified when patient returns. I relayed this information to nurse Medina and let her know that family should be the ones to transport patient back to [facility].
--- NOTE | 2019-06-21 10:27 | NUR ---
FINANCIAL CONTROLLER CALLED [facility] THEY STATED PT LIVES IN THE [facility] AND HIS FAMILY WILL TAKE HIM BACK THERE NO CASE MANAGEMNT NEEDED
--- NOTE | 2019-06-21 12:16 | NUR ---
PT DISCHARGED HOME WITH [facility]ILY PT WHEELCHAIR DOWN TO LOBBY PT AMBULATORY TO CAR, PT TELE MONITOR REMOVED AND SENT BACK TO TELE, IV REMOVED NO RESPIRATORY DISTRESS NOTED
== END 2019-06-21 12:21 | disposition home or self-care (01) | DRG 291 ==
LOC: ER 12:09 → TELE 12:10 → TELE-EAST 18:53
PROVIDERS: ADMIT Internal Medicine; ATTEND Internal Medicine
DX: I13.0 Hypertensive heart and chronic kidney disease with heart failure and stage 1 through stage 4 chronic kidney disease, or unspecified chronic kidney disease (principal); I50.23 Acute on chronic systolic (congestive) heart failure; J44.0 Chronic obstructive pulmonary disease with (acute) lower respiratory infection; J44.1 Chronic obstructive pulmonary disease with (acute) exacerbation; J10.1 Influenza due to other identified influenza virus with other respiratory manifestations; E78.00 Pure hypercholesterolemia, unspecified; E78.5 Hyperlipidemia, unspecified; I73.9 Peripheral vascular disease, unspecified; I70.0 Atherosclerosis of aorta; J20.9 Acute bronchitis, unspecified; I25.10 Atherosclerotic heart disease of native coronary artery without angina pectoris; I25.2 Old myocardial infarction; Z86.73 Personal history of transient ischemic attack (TIA), and cerebral infarction without residual deficits; Z95.5 Presence of coronary angioplasty implant and graft; Z88.0 Allergy status to penicillin; Z88.2 Allergy status to sulfonamides; Z79.899 Other long term (current) drug therapy; Z79.82 Long term (current) use of aspirin; N18.2 Chronic kidney disease, stage 2 (mild)
CPT/HCPCS: 36415; 71046; 80053; 82550; 83880; 84484; 85025; 85379; 85652; 86141; 87070; 87077; 87186; 87205; 87804; 93005; 94640; 99291; G0378; G9035; J3490

== ENCOUNTER → 2019-12-02 | Outpatient (CLI) | payer OTHER ==
[2019-12-02 09:22] LABS: Basophils # (auto) 0.1 10 ^3/uL (0-0.2); Eosinophils # (auto) 0.4 10 ^3/uL (0-0.8); Eosinophils % (auto) 4.5 % (0.0-7.0); Hematocrit 45.1 % (41.0-53.0); Hemoglobin 14.7 g/dL (13.5-17.5); Lymphocytes # (auto) 1.8 10 ^3/uL (0.4-5.4); Lymphocytes % (auto) 22.7 % (10.0-50.0); Mean Corpuscular Hgb Conc. 32.5 g/dL (32.0-36.0); Mean Corpuscular Volume 89.2 fL (80.0-100.0); Monocytes # (auto) 0.8 10 ^3/uL (0-1.3); Monocytes % (auto) 9.6 % (0.0-12.0); Neutrophils # (auto) 4.9 10 ^3/uL (1.6-8.6); Neutrophils % (auto) 62.2 % (37.0-80.0); Platelet Count (auto) 195 10^3/uL (140-450); Red Blood Cells 5.05 10^6/uL (4.5-5.90); White Blood Cell 7.8 10^3/uL (4.4-10.8)
[2019-12-02 09:42] LABS: Potassium 3.7 mmol/L (3.5-5.1)
[2019-12-02 09:52] LABS: Albumin 3.6 g/dL (3.4-5.0); BUN/Creatinine Ratio 15.4; Bilirubin, Total 0.6 mg/dL (0.2-1.0); Total Protein 7.4 g/dL (6.4-8.2)
== END | disposition home or self-care (01) ==
LOC: LAB 08:34
PROVIDERS: ATTEND Internal Medicine
DX: J44.9 Chronic obstructive pulmonary disease, unspecified (principal); R73.03 Prediabetes
CPT/HCPCS: 36415; 80053; 83036; 85025

== ENCOUNTER 2020-05-23 11:00 | Inpatient (IN) | payer OTHER ==
[~2020-05-23] VITALS: Ht 149.9 cm; Wt 48.5 kg
[~2020-05-23 11:00] MED LIST changes: -ENAL2.5T PO; +ENAL2.5T7 PO; +SPIR25TA PO; -SPIR25TA88 PO
[2020-05-23 12:21] LABS: Basophils # (auto) 0 10 ^3/uL (0-0.2); Basophils % (auto) 0.3 % (0.0-2.0); Eosinophils # (auto) 1.5 10 ^3/uL (0-0.8); Hematocrit 46.7 % (41.0-53.0); Hemoglobin 15.6 g/dL (13.5-17.5); Lymphocytes % (auto) 20.6 % (10.0-50.0); Mean Corpuscular Hgb Conc. 33.5 g/dL (32.0-36.0); Mean Corpuscular Volume 86.7 fL (80.0-100.0); Monocytes # (auto) 1.1 10 ^3/uL (0-1.3); Neutrophils # (auto) 5.3 10 ^3/uL (1.6-8.6); Neutrophils % (auto) 53.1 % (37.0-80.0); Nucleated Red Blood Cells % 0.1 %; Red Blood Cells 5.38 10^6/uL (4.5-5.90); Red Cell Distribution Width 13.8 % (11.8-14.3); White Blood Cell 9.9 10^3/uL (4.4-10.8)
[2020-05-23 12:37] LABS: Albumin 3.9 g/dL (3.4-5.0); Anion Gap 8 (5-15); Blood Urea Nitrogen 22 mg/dL (7-18); Calcium 8.9 mg/dL (8.5-10.1); Carbon Dioxide 26 mmol/L (21-32); Chloride 106 mmol/L (98-107); Glucose 91 mg/dL (74-106); Magnesium 2.2 mg/dL (1.6-2.6); Potassium 4.6 mmol/L (3.5-5.1); Sodium 140 mmol/L (136-145)
[2020-05-23 12:43] LABS: Alanine Aminotransferase 19 U/L (16-61); Alkaline Phosphatase 108 U/L (45-117); Aspartate Aminotransferase 13 U/L (15-37); BUN/Creatinine Ratio 13.9; Bilirubin, Total 0.6 mg/dL (0.2-1.0); GFR African American 54 mL/min; GFR Non-African American 45 mL/min; Total Protein 7.9 g/dL (6.4-8.2)
[2020-05-23] MEDS ORDERED: HYDROcodone-ACET 5/325MG TAB PO PRN (19:15)
[2020-05-23] MEDS ORDERED: NITROGLYCERIN 0.4 MG SL TAB SL PRN (19:15)
[2020-05-23] MEDS ORDERED: ONDANSETRON HCL 4 MG/2 ML VIAL IV PRN (19:15)
[2020-05-23] MEDS ORDERED: ACETAMINOPHEN 500 MG TAB PO PRN (19:15)
[2020-05-23] MEDS ORDERED: FUROSEMIDE 20 MG/2 ML VIAL IV ONE (19:15)
[2020-05-23] MEDS ORDERED: DOCUSATE SOD 100 MG CAP PO PRN (19:15)
[2020-05-23] MEDS ORDERED: MORPHINE SULFATE INJECTION 2 MG/ML SYRG IV PRN ×2 (19:15)
[2020-05-23] MEDS ORDERED: FURO40TA4 PO (20:00)
[2020-05-23] MEDS ORDERED: CARV6.2551 PO (20:00)
[2020-05-23] MEDS ORDERED: POTA10TA32 PO (20:00)
[2020-05-23] MEDS ORDERED: SACU1TAB PO (20:00)
[2020-05-23] MEDS: HYDROCORTISONE 2.5% TOPICAL CREAM 30GM TUBE TOP SCH (23:24)
[2020-05-23] MEDS: SPIRONOLACTONE 25 MG TAB PO SCH (23:28)
[2020-05-23] MEDS: ATORVASTATIN 20 MG TAB PO SCH (23:28)
[2020-05-24] MEDS: ENALAPRIL MALEATE 2.5 MG TAB PO SCH ×3 (00:40→22:00)
[2020-05-24] MEDS: CLINDAMYCIN 300MG IV 50 ML IV SCH ×4 (00:41→22:33)
[2020-05-24] MEDS: HYDROCORTISONE 2.5% TOPICAL CREAM 30GM TUBE TOP SCH (11:33)
[2020-05-24] MEDS: SPIRONOLACTONE 25 MG TAB PO SCH ×2 (11:34→22:00)
[2020-05-24] MEDS: ASPirin 81 mg TAB PO SCH (11:34)
[2020-05-24] MEDS: CLOPIDOGREL BISULFATE 75 MG TAB PO SCH (11:35)
[2020-05-24] MEDS: FAMOTIDINE 20 MG TAB PO SCH (11:35)
[2020-05-24] MEDS: CARVEDILOL 3.125 MG TAB PO SCH (22:00)
[2020-05-24] MEDS: ATORVASTATIN 20 MG TAB PO SCH (22:33)
[2020-05-25 02:48] VITALS: BP 124/54
[2020-05-25] MEDS ORDERED: ASPI-543 PO (03:15)
[2020-05-25] MEDS: HYDROCORTISONE 2.5% TOPICAL CREAM 30GM TUBE TOP SCH ×3 (03:50→22:45)
[2020-05-25 06:00] VITALS: BP 118/59
[2020-05-25] MEDS: CLINDAMYCIN 300MG IV 50 ML IV SCH ×3 (06:17→22:27)
[2020-05-25 08:57] VITALS: BP 144/55
[2020-05-25] MEDS: FUROSEMIDE 20 MG/2 ML VIAL IV SCH (09:20)
[2020-05-25] MEDS: FAMOTIDINE 20 MG TAB PO SCH (09:21)
[2020-05-25] MEDS: ASPirin 81 mg TAB PO SCH (09:21)
[2020-05-25] MEDS: CARVEDILOL 3.125 MG TAB PO SCH ×2 (09:21→22:00)
[2020-05-25] MEDS: SPIRONOLACTONE 25 MG TAB PO SCH ×2 (09:22→22:00)
[2020-05-25] MEDS: ENALAPRIL MALEATE 2.5 MG TAB PO SCH ×2 (09:22→22:00)
[2020-05-25] MEDS: CLOPIDOGREL BISULFATE 75 MG TAB PO SCH (09:22)
[2020-05-25 16:17] VITALS: BP 126/74
[2020-05-25] MEDS: IPRATROPIUM BROM 0.5 MG/2.5ML INH SOL NEB PRN (18:51)
[2020-05-25] MEDS: ALBUTEROL SULF 2.5 MG/0.5ML(0.5%) NEB SOLN NEB PRN (18:51)
[2020-05-25 22:00] VITALS: BP 120/65
[2020-05-25] MEDS: ATORVASTATIN 20 MG TAB PO SCH (22:00)
[2020-05-25 23:30] VITALS: BP 138/75
[2020-05-26] MEDS: IPRATROPIUM BROM 0.5 MG/2.5ML INH SOL NEB PRN ×2 (03:16→06:55)
[2020-05-26] MEDS: ALBUTEROL SULF 2.5 MG/0.5ML(0.5%) NEB SOLN NEB PRN ×2 (03:16→06:55)
[2020-05-26] MEDS: CLINDAMYCIN 300MG IV 50 ML IV SCH ×3 (06:12→20:32)
[2020-05-26 08:00] VITALS: BP 145/82
[2020-05-26] MEDS: ASPirin 81 mg TAB PO SCH (10:43)
[2020-05-26] MEDS: FAMOTIDINE 20 MG TAB PO SCH (10:43)
[2020-05-26] MEDS: CLOPIDOGREL BISULFATE 75 MG TAB PO SCH (10:43)
[2020-05-26] MEDS: HYDROCORTISONE 2.5% TOPICAL CREAM 30GM TUBE TOP SCH ×2 (10:44→22:00)
[2020-05-26] MEDS ORDERED: SACUBITRIL-VALSARTAN 24mg/26mg TAB PO ONE (10:45)
[2020-05-26] MEDS: CARVEDILOL 3.125 MG TAB PO SCH ×2 (10:48→22:02)
[2020-05-26] MEDS: SPIRONOLACTONE 25 MG TAB PO SCH ×2 (10:48→22:02)
[2020-05-26] MEDS: FUROSEMIDE 20 MG/2 ML VIAL IV SCH (10:49)
[2020-05-26] MEDS: ENALAPRIL MALEATE 2.5 MG TAB PO SCH (10:49)
[2020-05-26] MEDS ORDERED: methylPREDNISolone SOD SUCC 125 MG/2 ML VL IM ONE (11:00)
[2020-05-26] MEDS: IPRATROPIUM BROM 0.5 MG/2.5ML INH SOL NEB SCH ×4 (11:20→22:57)
[2020-05-26] MEDS: ALBUTEROL SULF 2.5 MG/0.5ML(0.5%) NEB SOLN NEB SCH ×4 (11:20→22:57)
[2020-05-26] MEDS ORDERED: methylPREDNISolone SOD SUCC 125 MG/2 ML VL IV ONE (11:45)
[2020-05-26 12:00] VITALS: BP 121/66
[2020-05-26 15:59] VITALS: BP 146/77
[2020-05-26 20:00] VITALS: BP 112/64
[2020-05-26] MEDS: ATORVASTATIN 20 MG TAB PO SCH (22:01)
[2020-05-26] MEDS: methylPREDNISolone SOD SUCC 125 MG/2 ML VL IV SCH (22:01)
[2020-05-27 02:00] VITALS: BP 116/52
[2020-05-27] MEDS: ALBUTEROL SULF 2.5 MG/0.5ML(0.5%) NEB SOLN NEB SCH ×4 (02:17→14:38)
[2020-05-27] MEDS: IPRATROPIUM BROM 0.5 MG/2.5ML INH SOL NEB SCH ×4 (02:17→14:38)
[2020-05-27] MEDS: CLINDAMYCIN 300MG IV 50 ML IV SCH (05:59)
[2020-05-27 06:04] VITALS: BP 135/75
[2020-05-27 08:00] VITALS: BP 132/76
[2020-05-27] MEDS: SPIRONOLACTONE 25 MG TAB PO SCH (09:45)
[2020-05-27] MEDS: ASPirin 81 mg TAB PO SCH (09:45)
[2020-05-27] MEDS: CARVEDILOL 3.125 MG TAB PO SCH (09:46)
[2020-05-27] MEDS: FAMOTIDINE 20 MG TAB PO SCH (09:46)
[2020-05-27] MEDS: CLOPIDOGREL BISULFATE 75 MG TAB PO SCH (09:46)
[2020-05-27] MEDS: HYDROCORTISONE 2.5% TOPICAL CREAM 30GM TUBE TOP SCH (09:46)
[2020-05-27] MEDS: methylPREDNISolone SOD SUCC 125 MG/2 ML VL IV SCH (10:00)
[2020-05-27] MEDS: FUROSEMIDE 20 MG/2 ML VIAL IV SCH (10:00)
[2020-05-27 13:52] VITALS: BP 132/76
[2020-05-27] MEDS ORDERED: SACUBITRIL-VALSARTAN 24mg/26mg TAB PO SCH (22:00)
== END 2020-05-27 14:55 | disposition home or self-care (01) | DRG 291 ==
LOC: ER 11:00 → TELE 19:01 → TELE-CENTR 05-25 01:35
PROVIDERS: ADMIT Nurse Practitioner Acute Care; ATTEND Family Medicine
DX: I13.0 Hypertensive heart and chronic kidney disease with heart failure and stage 1 through stage 4 chronic kidney disease, or unspecified chronic kidney disease (principal); I50.23 Acute on chronic systolic (congestive) heart failure; L03.116 Cellulitis of left lower limb; L03.115 Cellulitis of right lower limb; J44.1 Chronic obstructive pulmonary disease with (acute) exacerbation; I42.0 Dilated cardiomyopathy; I25.10 Atherosclerotic heart disease of native coronary artery without angina pectoris; N18.30 Chronic kidney disease, stage 3 unspecified; E78.5 Hyperlipidemia, unspecified; Z20.822 Contact with and (suspected) exposure to COVID-19; Z79.82 Long term (current) use of aspirin; Z83.3 Family history of diabetes mellitus; Z86.718 Personal history of other venous thrombosis and embolism; Z86.73 Personal history of transient ischemic attack (TIA), and cerebral infarction without residual deficits; Z95.5 Presence of coronary angioplasty implant and graft
CPT/HCPCS: 36415; 71045; 78582; 80053; 82728; 83735; 83880; 84484; 85025; 85379; 86141; 87426; 93005; 93306; 93970; 94640; G0378; J2405; J3490

== ENCOUNTER → 2020-08-29 | Outpatient (CLI) | payer OTHER ==
[~2020-08-29] MED LIST changes: +ASPI-543 PO; -ASPI81CH43 PO; -ATO40T PO; +CARV6.2551 PO; -CLOP75TA28 PO; -ENAL2.5T7 PO; +FURO40TA4 PO; +POTA10TA32 PO; +SACU1TAB PO; -SPIR25TA PO
[2020-08-29 09:49] LABS: Potassium 4.3 mmol/L (3.5-5.1)
[2020-08-29 09:55] LABS: BUN/Creatinine Ratio 18.3; Calcium 9.2 mg/dL (8.5-10.1)
== END | disposition home or self-care (01) ==
LOC: LAB 08:20
PROVIDERS: ATTEND Internal Medicine
DX: E11.9 Type 2 diabetes mellitus without complications (principal)
CPT/HCPCS: 36415; 80048; 83880

== ENCOUNTER → 2020-10-26 | Outpatient (CLI) | payer OTHER ==
[2020-10-26 09:11] LABS: Basophils # (auto) 0.1 10 ^3/uL (0-0.2); Basophils % (auto) 0.8 % (0.0-2.0); Eosinophils # (auto) 0.4 10 ^3/uL (0-0.8); Eosinophils % (auto) 4.2 % (0.0-7.0); Hematocrit 38.8 % (41.0-53.0); Lymphocytes % (auto) 23.6 % (10.0-50.0); Mean Corpuscular Hemoglobin 29.9 pg (28.0-32.0); Mean Corpuscular Hgb Conc. 33.5 g/dL (32.0-36.0); Monocytes # (auto) 0.6 10 ^3/uL (0-1.3); Monocytes % (auto) 7.5 % (0.0-12.0); Neutrophils # (auto) 5.4 10 ^3/uL (1.6-8.6); Neutrophils % (auto) 63.9 % (37.0-80.0); Nucleated Red Blood Cells % 0.1 %; Platelet Count (auto) 196 10^3/uL (140-450); Red Blood Cells 4.36 10^6/uL (4.5-5.90); White Blood Cell 8.4 10^3/uL (4.4-10.8)
[2020-10-26 09:33] LABS: Albumin 3.9 g/dL (3.4-5.0); BUN/Creatinine Ratio 13.2; Calcium 9.3 mg/dL (8.5-10.1); Potassium 4.4 mmol/L (3.5-5.1)
[2020-10-26 09:36] LABS: Bilirubin, Total 0.4 mg/dL (0.2-1.0); Total Protein 7.4 g/dL (6.4-8.2)
== END | disposition home or self-care (01) ==
LOC: LAB 08:18
PROVIDERS: ATTEND Internal Medicine Cardiovascular Disease
DX: I10 Essential (primary) hypertension (principal)
CPT/HCPCS: 36415; 80053; 85025

== ENCOUNTER → 2020-12-22 | Outpatient (CLI) | payer OTHER ==
[2020-12-22 09:32] LABS: BUN/Creatinine Ratio 13.2; Calcium 8.5 mg/dL (8.5-10.1)
== END | disposition home or self-care (01) ==
LOC: LAB 08:44
PROVIDERS: ATTEND Internal Medicine Cardiovascular Disease
DX: I11.0 Hypertensive heart disease with heart failure (principal); I50.22 Chronic systolic (congestive) heart failure; I34.0 Nonrheumatic mitral (valve) insufficiency; I34.1 Nonrheumatic mitral (valve) prolapse; I25.119 Atherosclerotic heart disease of native coronary artery with unspecified angina pectoris
CPT/HCPCS: 36415; 80048

== ENCOUNTER 2021-03-29 22:40 | Observation (INO) | payer OTHER ==
[~2021-03-29] VITALS: Ht 149.9 cm; Wt 42.8 kg
[2021-03-29] MEDS ORDERED: ALBUTEROL SULF 2.5 MG/0.5ML(0.5%) NEB SOLN NEB STA (22:58)
[2021-03-29] MEDS ORDERED: IPRATROPIUM BROM 0.5 MG/2.5ML INH SOL NEB ONE (23:00)
[2021-03-29] MEDS ORDERED: NITROGLYCERIN 50MG/250ML 250 ML IV ONE (23:45)
[2021-03-29] MEDS ORDERED: FUROSEMIDE 40 MG/4 ML VIAL ONE (23:48)
[2021-03-30] VITALS (8 sets, daily range): BP systolic 98–164; BP diastolic 43–89
[2021-03-30] MEDS ORDERED: FUROSEMIDE 40 MG/4 ML VIAL IV ONE (00:30)
[2021-03-30 00:37] LABS: Hematocrit 43.8 % (41.0-53.0); Mean Corpuscular Hemoglobin 25.8 pg (28.0-32.0); Nucleated Red Blood Cells % 0.1 %
[2021-03-30 00:38] LABS: Basophils # (auto) 0.1 10 ^3/uL (0-0.2); Eosinophils # (auto) 0.3 10 ^3/uL (0-0.8); Eosinophils % (auto) 2.8 % (0.0-7.0); Lymphocytes # (auto) 2.2 10 ^3/uL (0.4-5.4); Lymphocytes % (auto) 18.8 % (10.0-50.0); Mean Corpuscular Hgb Conc. 31.9 g/dL (32.0-36.0); Mean Corpuscular Volume 80.8 fL (80.0-100.0); Monocytes # (auto) 0.7 10 ^3/uL (0-1.3); Monocytes % (auto) 6.3 % (0.0-12.0); Neutrophils # (auto) 8.5 10 ^3/uL (1.6-8.6); Neutrophils % (auto) 71.1 % (37.0-80.0); Red Blood Cells 5.42 10^6/uL (4.5-5.90); Red Cell Distribution Width 18.1 % (11.8-14.3); White Blood Cell 11.9 10^3/uL (4.4-10.8)
[2021-03-30 00:55] LABS: Albumin 3.2 g/dL (3.4-5.0); BUN/Creatinine Ratio 15.2; Bilirubin, Total 0.5 mg/dL (0.2-1.0); Calcium 8.5 mg/dL (8.5-10.1); Potassium 4.2 mmol/L (3.5-5.1); Total Protein 7.2 g/dL (6.4-8.2)
[2021-03-30] MEDS ORDERED: ONDANSETRON HCL 4 MG/2 ML VIAL IV PRN (03:00)
[2021-03-30] MEDS ORDERED: ACETAMINOPHEN 325 MG TAB PO PRN (03:00)
[2021-03-30] MEDS ORDERED: LABETALOL HCL 5 MG/ML 4ML SYRINGE IV ONE (03:00)
[2021-03-30] MEDS ORDERED: ALBUTEROL SULF 2.5 MG/0.5ML(0.5%) NEB SOLN NEB PRN (03:00)
[2021-03-30] MEDS ORDERED: TEMAZEPAM 15 MG CAP PO PRN (03:00)
[2021-03-30] MEDS ORDERED: NITROGLYCERIN 0.4 MG SL TAB SL PRN (03:00)
[2021-03-30] MEDS ORDERED: MORPHINE SULFATE INJECTION 2 MG/ML SYRG IV PRN (03:00)
[2021-03-30] MEDS: FUROSEMIDE 20 MG/2 ML VIAL IV SCH ×2 (06:16→17:04)
[2021-03-30 06:31] LABS: Urine Bacteria MOD /hpf (None Seen); Urine Blood Negative /uL (Negative); Urine Specific Gravity 1.007 (1.001-1.035); Urine WBC 24 /hpf (0 - 3)
[2021-03-30] MEDS: ASPirin 81 mg TAB PO SCH (09:41)
[2021-03-30] MEDS: ENOXAPARIN SOD 40 MG/0.4 ML SYRINGE SC SCH (09:42)
[2021-03-30] MEDS: CARVEDILOL 3.125 MG TAB PO SCH ×2 (09:42→22:00)
[2021-03-30] MEDS ORDERED: PANTOPRAZOLE 40 MG TAB PO SCH (10:00)
[2021-03-30] MEDS ORDERED: SACUBITRIL-VALSARTAN 24mg/26mg TAB PO SCH (10:00)
[2021-03-30] MEDS ORDERED: DOBUTamine 1000MCG/ML 250 ML IV SCH (10:30)
[2021-03-30 13:26] LABS: BUN/Creatinine Ratio 14.5; Calcium 8.7 mg/dL (8.5-10.1); Magnesium 2.1 mg/dL (1.6-2.6); Potassium 3.9 mmol/L (3.5-5.1)
[2021-03-30] MEDS ORDERED: ATORVASTATIN 20 MG TAB PO SCH (22:00)
[2021-03-30] MEDS: SACUBITRIL-VALSARTAN 24mg/26mg TAB PO SCH (22:05)
[2021-03-31 05:33] LABS: Basophils # (auto) 0.1 10 ^3/uL (0-0.2); Basophils % (auto) 0.6 % (0.0-2.0); Eosinophils # (auto) 0.3 10 ^3/uL (0-0.8); Hemoglobin 12.6 g/dL (13.5-17.5); Lymphocytes # (auto) 1.3 10 ^3/uL (0.4-5.4)
[2021-03-31 05:36] LABS: Eosinophils % (auto) 2.9 % (0.0-7.0); Hematocrit 38.3 % (41.0-53.0); Lymphocytes % (auto) 14.4 % (10.0-50.0); Mean Corpuscular Hemoglobin 25.8 pg (28.0-32.0); Mean Corpuscular Hgb Conc. 32.8 g/dL (32.0-36.0); Mean Corpuscular Volume 78.7 fL (80.0-100.0); Monocytes # (auto) 0.9 10 ^3/uL (0-1.3); Monocytes % (auto) 9.6 % (0.0-12.0); Neutrophils # (auto) 6.7 10 ^3/uL (1.6-8.6); Neutrophils % (auto) 72.5 % (37.0-80.0); Nucleated Red Blood Cells % 0.1 %; Red Blood Cells 4.87 10^6/uL (4.5-5.90); Red Cell Distribution Width 17.1 % (11.8-14.3); White Blood Cell 9.3 10^3/uL (4.4-10.8)
[2021-03-31 05:52] LABS: Potassium 3.7 mmol/L (3.5-5.1)
[2021-03-31 05:59] LABS: Albumin 2.7 g/dL (3.4-5.0); BUN/Creatinine Ratio 16.4; Bilirubin, Total 0.6 mg/dL (0.2-1.0); Calcium 8.1 mg/dL (8.5-10.1); Phosphorus 3.4 mg/dL (2.5-4.90); Total Protein 5.8 g/dL (6.4-8.2)
[2021-03-31] MEDS: FUROSEMIDE 20 MG/2 ML VIAL IV SCH (06:24)
[2021-03-31 08:00] VITALS: BP 109/59
[2021-03-31 08:30] VITALS: BP 103/52
[2021-03-31] MEDS ORDERED: DAPA1TAB4 PO (08:37)
[2021-03-31] MEDS: SACUBITRIL-VALSARTAN 24mg/26mg TAB PO SCH (09:09)
[2021-03-31] MEDS: CARVEDILOL 3.125 MG TAB PO SCH (09:10)
[2021-03-31] MEDS: ASPirin 81 mg TAB PO SCH (09:11)
[2021-03-31] MEDS: ENOXAPARIN SOD 40 MG/0.4 ML SYRINGE SC SCH (09:11)
[2021-03-31] MEDS ORDERED: DAPAGLIFLOZIN 5 MG TAB PO SCH (10:00)
[2021-03-31 12:12] VITALS: BP 95/42
[2021-03-31 12:14] VITALS: BP 136/57
[2021-03-31 12:21] VITALS: BP 103/52
== END 2021-03-31 14:45 | disposition home or self-care (01) ==
LOC: EDUNIT# 22:40 → EDBD 22:40 → ER 22:42 → INTOOBSV 03-30 02:57 → TELE-CENTR 03-30 02:57
PROVIDERS: ADMIT Nurse Practitioner; ATTEND Internal Medicine
DX: I21.4 Non-ST elevation (NSTEMI) myocardial infarction (principal); Z20.822 Contact with and (suspected) exposure to COVID-19; I13.0 Hypertensive heart and chronic kidney disease with heart failure and stage 1 through stage 4 chronic kidney disease, or unspecified chronic kidney disease; I50.23 Acute on chronic systolic (congestive) heart failure; N18.30 Chronic kidney disease, stage 3 unspecified; I08.0 Rheumatic disorders of both mitral and aortic valves; I25.10 Atherosclerotic heart disease of native coronary artery without angina pectoris; I27.20 Pulmonary hypertension, unspecified; I42.0 Dilated cardiomyopathy; D84.9 Immunodeficiency, unspecified; E78.5 Hyperlipidemia, unspecified; R74.01 Elevation of levels of liver transaminase levels; R07.89 Other chest pain; R73.03 Prediabetes; Z66 Do not resuscitate; Z86.718 Personal history of other venous thrombosis and embolism; Z86.73 Personal history of transient ischemic attack (TIA), and cerebral infarction without residual deficits; Z87.891 Personal history of nicotine dependence; Z95.5 Presence of coronary angioplasty implant and graft; Z79.82 Long term (current) use of aspirin; Z90.49 Acquired absence of other specified parts of digestive tract; Z95.1 Presence of aortocoronary bypass graft
CPT/HCPCS: 36415; 36600; 71045; 71250; 80048; 80053; 81001; 82805; 83036; 83605; 83735; 83880; 84100; 84484; 85025; 87040; 87426; 93005; 93306; 94660; 96365; 96366; 96367; 96372; 96375; 96376; 99291; G0378; J1250; J1650; J1940; J7644

== ENCOUNTER → 2021-05-22 | Outpatient (CLI) | payer OTHER ==
[~2021-05-22] MED LIST changes: +DAPA1TAB4 PO
[2021-05-22 08:05] LABS: Urine Bacteria MANY /hpf (None Seen); Urine Blood Negative /uL (Negative); Urine Hyaline Cast FEW /lpf (0 - 2); Urine WBC 58 /hpf (0 - 3); Urine WBC Clumps PRESENT /hpf (None Seen)
[2021-05-22 09:16] LABS: Cholesterol 153 mg/dL (< 200); HDL Cholesterol 56 mg/dL (40-59); LDL Cholesterol 74 mg/dL (< 100); Triglycerides 177 mg/dL (< 150)
== END | disposition home or self-care (01) ==
LOC: LAB 07:38
PROVIDERS: ATTEND Internal Medicine
DX: I11.0 Hypertensive heart disease with heart failure (principal); I50.23 Acute on chronic systolic (congestive) heart failure
CPT/HCPCS: 36415; 80061; 81001; 83880

== ENCOUNTER → 2021-06-27 | Outpatient (CLI) | payer OTHER | END | disposition home or self-care (01) | LOC: XY 09:55 | PROVIDERS: ATTEND Internal Medicine | DX: I65.21 Occlusion and stenosis of right carotid artery (principal); Z86.73 Personal history of transient ischemic attack (TIA), and cerebral infarction without residual deficits | CPT/HCPCS: 93886 ==

== ENCOUNTER → 2021-08-24 | Outpatient (CLI) | payer MEDICARE ==
[2021-08-24 08:53] LABS: Eosinophils # (auto) 0.3 10 ^3/uL (0-0.8); Lymphocytes # (auto) 1.6 10 ^3/uL (0.4-5.4); Monocytes # (auto) 0.5 10 ^3/uL (0-1.3); Neutrophils # (auto) 3.3 10 ^3/uL (1.6-8.6); Nucleated Red Blood Cells % 0.1 %; Red Cell Distribution Width 15.1 % (11.8-14.3)
[2021-08-24 08:56] LABS: Basophils # (auto) 0 10 ^3/uL (0-0.2); Basophils % (auto) 0.8 % (0.0-2.0); Eosinophils % (auto) 4.8 % (0.0-7.0); Hematocrit 39.7 % (41.0-53.0); Hemoglobin 12.8 g/dL (13.5-17.5); Lymphocytes % (auto) 27.7 % (10.0-50.0); Mean Corpuscular Hemoglobin 27.3 pg (28.0-32.0); Mean Corpuscular Hgb Conc. 32.2 g/dL (32.0-36.0); Mean Corpuscular Volume 84.6 fL (80.0-100.0); Monocytes % (auto) 8.5 % (0.0-12.0); Neutrophils % (auto) 58.2 % (37.0-80.0); Red Blood Cells 4.69 10^6/uL (4.5-5.90); White Blood Cell 5.6 10^3/uL (4.4-10.8)
[2021-08-24 09:56] LABS: Potassium 3.9 mmol/L (3.5-5.1)
[2021-08-24 10:12] LABS: Albumin 2.9 g/dL (3.4-5.0); BUN/Creatinine Ratio 10.2; Bilirubin, Total 0.4 mg/dL (0.2-1.0); Calcium 8.7 mg/dL (8.5-10.1); Total Protein 7.1 g/dL (6.4-8.2)
== END | disposition home or self-care (01) ==
LOC: LAB 08:07
PROVIDERS: ATTEND Internal Medicine
DX: I25.10 Atherosclerotic heart disease of native coronary artery without angina pectoris (principal); A18.2 Tuberculous peripheral lymphadenopathy; G45.9 Transient cerebral ischemic attack, unspecified; R73.03 Prediabetes
CPT/HCPCS: 36415; 80053; 83036; 85025

== ENCOUNTER → 2022-01-02 | Outpatient (CLI) | payer MEDICARE ==
[2022-01-02 09:19] LABS: Calcium 8.9 mg/dL (8.5-10.1); Potassium 3.6 mmol/L (3.5-5.1)
[2022-01-02 09:24] LABS: Albumin 3.4 g/dL (3.4-5.0); BUN/Creatinine Ratio 16.8; Bilirubin, Total 0.5 mg/dL (0.2-1.0); Total Protein 7.8 g/dL (6.4-8.2)
== END | disposition home or self-care (01) ==
LOC: LAB 08:19
PROVIDERS: ATTEND Internal Medicine
DX: I42.9 Cardiomyopathy, unspecified (principal); R73.03 Prediabetes; I10 Essential (primary) hypertension
CPT/HCPCS: 36415; 80053

== ENCOUNTER → 2022-01-23 | Outpatient (CLI) | payer OTHER | END | disposition home or self-care (01) | LOC: XYW 12:45 | PROVIDERS: ATTEND Internal Medicine | DX: I08.3 Combined rheumatic disorders of mitral, aortic and tricuspid valves (principal); I25.10 Atherosclerotic heart disease of native coronary artery without angina pectoris; I11.0 Hypertensive heart disease with heart failure | CPT/HCPCS: 93306 ==

== ENCOUNTER → 2022-01-30 | Outpatient (CLI) | payer OTHER ==
[2022-01-30 09:01] LABS: BUN/Creatinine Ratio 18.8; Calcium 8.1 mg/dL (8.5-10.1); Potassium 3.7 mmol/L (3.5-5.1)
== END | disposition home or self-care (01) ==
LOC: LAB 08:15
PROVIDERS: ATTEND Internal Medicine
DX: E11.9 Type 2 diabetes mellitus without complications (principal); I10 Essential (primary) hypertension
CPT/HCPCS: 36415; 80048

== ENCOUNTER → 2022-02-19 | Outpatient (CLI) | payer OTHER ==
[2022-02-19 09:15] LABS: Urine Bacteria MANY /hpf (None Seen); Urine Blood TRACE /uL (Negative); Urine Budding Yeast MODERATE /hpf (None Seen); Urine Mucus FEW (None Seen); Urine Specific Gravity 1.006 (1.001-1.035); Urine WBC 91 /hpf (0 - 3); Urine WBC Clumps PRESENT /hpf (None Seen)
== END | disposition home or self-care (01) ==
LOC: LAB 07:29
PROVIDERS: ATTEND Internal Medicine
DX: N39.0 Urinary tract infection, site not specified (principal)
CPT/HCPCS: 81001

== ENCOUNTER → 2022-03-07 | Outpatient (CLI) | payer OTHER ==
[2022-03-07 09:11] LABS: Calcium 8.5 mg/dL (8.5-10.1)
[2022-03-07 09:13] LABS: BUN/Creatinine Ratio 14.1
== END | disposition home or self-care (01) ==
LOC: LAB 08:25
PROVIDERS: ATTEND Internal Medicine
DX: I13.0 Hypertensive heart and chronic kidney disease with heart failure and stage 1 through stage 4 chronic kidney disease, or unspecified chronic kidney disease (principal); I50.22 Chronic systolic (congestive) heart failure; N18.30 Chronic kidney disease, stage 3 unspecified
CPT/HCPCS: 36415; 80048; 83880

== ENCOUNTER → 2022-03-13 | Outpatient (CLI) | payer OTHER ==
[2022-03-13 10:18] LABS: Calcium 8.2 mg/dL (8.5-10.1); Potassium 3.7 mmol/L (3.5-5.1)
[2022-03-13 10:20] LABS: BUN/Creatinine Ratio 14.4
== END | disposition home or self-care (01) ==
LOC: LAB 09:22
PROVIDERS: ATTEND Internal Medicine
DX: I13.0 Hypertensive heart and chronic kidney disease with heart failure and stage 1 through stage 4 chronic kidney disease, or unspecified chronic kidney disease (principal); I50.22 Chronic systolic (congestive) heart failure; N18.31 Chronic kidney disease, stage 3a; I42.0 Dilated cardiomyopathy
CPT/HCPCS: 36415; 80048

== ENCOUNTER 2022-05-25 10:53 | Inpatient (IN) | payer OTHER ==
[~2022-05-25] VITALS: Ht 149.9 cm; Wt 40.7 kg
[2022-05-25 11:40] LABS: Eosinophils # (auto) 0.1 10 ^3/uL (0-0.8); Eosinophils % (auto) 1.1 % (0.0-7.0); Neutrophils # (auto) 4.8 10 ^3/uL (1.6-8.6); White Blood Cell 7.9 10^3/uL (4.4-10.8)
[2022-05-25 11:41] LABS: Basophils # (auto) 0.1 10 ^3/uL (0-0.2); Basophils % (auto) 0.7 % (0.0-2.0); Hematocrit 40.3 % (41.0-53.0); Hemoglobin 12.9 g/dL (13.5-17.5); Lymphocytes % (auto) 25.2 % (10.0-50.0); Mean Corpuscular Hemoglobin 26.5 pg (28.0-32.0); Mean Corpuscular Hgb Conc. 32.1 g/dL (32.0-36.0); Mean Corpuscular Volume 82.6 fL (80.0-100.0); Monocytes # (auto) 0.9 10 ^3/uL (0-1.3); Monocytes % (auto) 11.7 % (0.0-12.0); Neutrophils % (auto) 61.3 % (37.0-80.0); Nucleated Red Blood Cells % 0.1 %; Red Blood Cells 4.88 10^6/uL (4.5-5.90); Red Cell Distribution Width 16.4 % (11.8-14.3)
[2022-05-25] MEDS ORDERED: LACTATED RINGER'S 1,000 ML IV ONE ×2 (11:45→23:30)
[2022-05-25 12:00] LABS: Lactic Acid w/Reflex 3.5 mmol/L (0.4-2.0)
[2022-05-25] MEDS ORDERED: LIDOCAINE VISCOUS 2% 15ML UD PO ONE (12:00)
[2022-05-25] MEDS ORDERED: FAMOTIDINE (10MG/ML) 2ML VL IV ONE (12:00)
[2022-05-25] MEDS ORDERED: ONDANSETRON HCL 4 MG/2 ML VIAL IV ONE (12:00)
[2022-05-25] MEDS ORDERED: MAALOX PLUS or MAALOX 30 ML PO ONE (12:00)
[2022-05-25 14:15] LABS: Albumin 2.9 g/dL (3.4-5.0); Anion Gap 10 (5-15); Blood Urea Nitrogen 27 mg/dL (7-18); Calcium 8.5 mg/dL (8.5-10.1); Carbon Dioxide 23 mmol/L (21-32); Chloride 106 mmol/L (98-107); Glucose 105 mg/dL (74-106); Lipase 37 U/L (73-393); Magnesium 2.4 mg/dL (1.6-2.6); Sodium 139 mmol/L (136-145)
[2022-05-25 14:19] LABS: Alanine Aminotransferase 10 U/L (16-61); Alkaline Phosphatase 99 U/L (45-117); Aspartate Aminotransferase 14 U/L (15-37); BUN/Creatinine Ratio 16.1; Bilirubin, Total 0.4 mg/dL (0.2-1.0); GFR African American 50 mL/min; GFR Non-African American 41 mL/min; Total Protein 7.4 g/dL (6.4-8.2)
[2022-05-25] MEDS ORDERED: POTASSIUM EFFERVESENT TAB 25 MEQ PO ONE (19:00)
[2022-05-25] MEDS ORDERED: metroNIDAZOLE 500MG/100ML 100 ML IV ONE (19:00)
[2022-05-25] MEDS ORDERED: POTASSIUM CHL 20MEQ/100ML 100 ML IV ONE (19:00)
[2022-05-25] MEDS ORDERED: CIPROFLOXACIN 400MG/200ML 200 ML IV ONE (19:00)
[2022-05-25] MEDS ORDERED: ONDANSETRON HCL 4 MG/2 ML VIAL IV PRN (23:00)
[2022-05-25] MEDS ORDERED: metroNIDAZOLE 500MG/100ML 100 ML IV SCH (23:00)
[2022-05-25] MEDS ORDERED: DOCUSATE SOD 100 MG CAP PO PRN (23:00)
[2022-05-25] MEDS ORDERED: ACETAMINOPHEN 325 MG TAB PO PRN (23:00)
[2022-05-25] MEDS ORDERED: HYDROmorphone HCL 2 MG/ML VL/or syr IV PRN (23:00)
[2022-05-25] MEDS ORDERED: HYDROcodone-ACET 5/325MG TAB PO PRN (23:00)
[2022-05-26 00:30] LABS: Calcium 8.8 mg/dL (8.5-10.1)
[2022-05-26 00:32] LABS: Lactic Acid w/Reflex 2.3 mmol/L (0.4-2.0)
[2022-05-26 00:55] LABS: Uric Acid 8.7 mg/dL (3.5-7.2)
[2022-05-26] MEDS: SODIUM CHLOR 0.9% PF (SALINE LOCK) 10ML VIAL/SYR IV SCH ×3 (12:11→23:26)
[2022-05-26] MEDS: CIPROFLOXACIN 400MG/200ML 200 ML IV SCH (12:20)
[2022-05-26] MEDS: metroNIDAZOLE 500MG/100ML 100 ML IV SCH (12:20)
[2022-05-26 15:23] LABS: Basophils # (auto) 0 10 ^3/uL (0-0.2); Eosinophils # (auto) 0 10 ^3/uL (0-0.8); Lymphocytes # (auto) 1.2 10 ^3/uL (0.4-5.4); Monocytes # (auto) 0.8 10 ^3/uL (0-1.3); Monocytes % (auto) 11.9 % (0.0-12.0); Neutrophils # (auto) 4.5 10 ^3/uL (1.6-8.6); White Blood Cell 6.5 10^3/uL (4.4-10.8)
[2022-05-26 15:27] LABS: Basophils % (auto) 0.5 % (0.0-2.0); Eosinophils % (auto) 0.4 % (0.0-7.0); Hematocrit 33.7 % (41.0-53.0); Hemoglobin 11.3 g/dL (13.5-17.5); Lymphocytes % (auto) 18.3 % (10.0-50.0); Mean Corpuscular Hemoglobin 27.9 pg (28.0-32.0); Mean Corpuscular Hgb Conc. 33.5 g/dL (32.0-36.0); Mean Corpuscular Volume 83.2 fL (80.0-100.0); Neutrophils % (auto) 68.9 % (37.0-80.0); Red Blood Cells 4.05 10^6/uL (4.5-5.90); Red Cell Distribution Width 16.4 % (11.8-14.3)
[2022-05-26 15:50] LABS: Albumin 2.4 g/dL (3.4-5.0); Calcium 8.2 mg/dL (8.5-10.1)
[2022-05-26 15:53] LABS: BUN/Creatinine Ratio 18.8
[2022-05-26 15:55] LABS: Bilirubin, Total 0.4 mg/dL (0.2-1.0); Total Protein 6.1 g/dL (6.4-8.2)
[2022-05-26 15:59] LABS: Potassium 2.9 mmol/L (3.5-5.1)
[2022-05-26] MEDS: POTASSIUM CHL 20MEQ/100ML 100 ML IV SCH ×3 (16:53→22:43)
[2022-05-26 17:41] VITALS: BP 108/61
[2022-05-26 20:00] VITALS: BP 109/49
[2022-05-26 22:00] VITALS: BP 109/49
[2022-05-27] VITALS (7 sets, daily range): BP systolic 99–109; BP diastolic 30–58
[2022-05-27] MEDS: metroNIDAZOLE 500MG/100ML 100 ML IV SCH ×4 (00:14→21:41)
[2022-05-27] MEDS: SODIUM CHLOR 0.9% PF (SALINE LOCK) 10ML VIAL/SYR IV SCH ×3 (05:49→21:44)
[2022-05-27 06:46] LABS: Basophils # (auto) 0 10 ^3/uL (0-0.2); Basophils % (auto) 0.5 % (0.0-2.0); Eosinophils # (auto) 0.1 10 ^3/uL (0-0.8); Eosinophils % (auto) 1.3 % (0.0-7.0); Hematocrit 34.2 % (41.0-53.0); Hemoglobin 11.3 g/dL (13.5-17.5); Lymphocytes % (auto) 19.3 % (10.0-50.0); Mean Corpuscular Hemoglobin 27.2 pg (28.0-32.0); Mean Corpuscular Volume 82.4 fL (80.0-100.0); Monocytes # (auto) 0.5 10 ^3/uL (0-1.3); Monocytes % (auto) 10.7 % (0.0-12.0); Neutrophils # (auto) 3.5 10 ^3/uL (1.6-8.6); Neutrophils % (auto) 68.2 % (37.0-80.0); Nucleated Red Blood Cells % 0.1 %; Red Blood Cells 4.15 10^6/uL (4.5-5.90); Red Cell Distribution Width 16.4 % (11.8-14.3); White Blood Cell 5.1 10^3/uL (4.4-10.8)
[2022-05-27 06:58] LABS: Albumin 2.6 g/dL (3.4-5.0); Calcium 8.3 mg/dL (8.5-10.1); Magnesium 2.7 mg/dL (1.6-2.6)
[2022-05-27 07:03] LABS: BUN/Creatinine Ratio 17.9; Bilirubin, Total 0.4 mg/dL (0.2-1.0); Total Protein 6.2 g/dL (6.4-8.2)
[2022-05-27 07:47] LABS: Sodium Urine 21 mmol/L (40-220); Urine Bacteria MANY /hpf (None Seen); Urine Blood Negative /uL (Negative); Urine Hyaline Cast MOD /lpf (0 - 2); Urine Mucus FEW (None Seen); Urine Specific Gravity 1.015 (1.001-1.035); Urine Sperm PRESENT /hpf (None Seen); Urine WBC 122 /hpf (0 - 3); Urine WBC Clumps PRESENT /hpf (None Seen)
[2022-05-27 07:51] LABS: Creatinine, Urine 100 mg/dL (30.0-125.0)
[2022-05-27] MEDS: CIPROFLOXACIN 400MG/200ML 200 ML IV SCH (10:30)
[2022-05-27] MEDS: SODIUM CHLORIDE 0.9% 1,000 ML IV SCH (13:16)
[2022-05-27] MEDS ORDERED: GASTROGRAFIN 120 ML SOL ONE (15:19)
[2022-05-28] MEDS: SODIUM CHLORIDE 0.9% 1,000 ML IV SCH ×2 (02:20→04:31)
[2022-05-28 05:00] VITALS: BP 106/44
[2022-05-28] MEDS: metroNIDAZOLE 500MG/100ML 100 ML IV SCH ×3 (05:47→22:01)
[2022-05-28] MEDS: SODIUM CHLOR 0.9% PF (SALINE LOCK) 10ML VIAL/SYR IV SCH ×3 (05:50→22:06)
[2022-05-28 06:40] LABS: Alanine Aminotransferase 9 U/L (16-61); Albumin 2.2 g/dL (3.4-5.0); Anion Gap 14 (5-15); Aspartate Aminotransferase 18 U/L (15-37); Blood Urea Nitrogen 19 mg/dL (7-18); Calcium 8.1 mg/dL (8.5-10.1); Carbon Dioxide 13 mmol/L (21-32); Chloride 119 mmol/L (98-107); GFR African American 69 mL/min; GFR Non-African American 57 mL/min; Glucose 65 mg/dL (74-106); Sodium 146 mmol/L (136-145)
[2022-05-28 06:42] LABS: Alkaline Phosphatase 71 U/L (45-117); Bilirubin, Total 0.4 mg/dL (0.2-1.0); Total Protein 6.1 g/dL (6.4-8.2)
[2022-05-28 07:50] LABS: Basophils # (auto) 0 10 ^3/uL (0-0.2); Basophils % (auto) 0.7 % (0.0-2.0); Eosinophils # (auto) 0.1 10 ^3/uL (0-0.8); Eosinophils % (auto) 2.3 % (0.0-7.0); Hematocrit 35.6 % (41.0-53.0); Hemoglobin 11.3 g/dL (13.5-17.5); Lymphocytes # (auto) 1.4 10 ^3/uL (0.4-5.4); Lymphocytes % (auto) 25.2 % (10.0-50.0); Mean Corpuscular Hemoglobin 26.2 pg (28.0-32.0); Mean Corpuscular Hgb Conc. 31.7 g/dL (32.0-36.0); Mean Corpuscular Volume 82.6 fL (80.0-100.0); Monocytes # (auto) 0.6 10 ^3/uL (0-1.3); Monocytes % (auto) 10.4 % (0.0-12.0); Neutrophils # (auto) 3.5 10 ^3/uL (1.6-8.6); Neutrophils % (auto) 61.4 % (37.0-80.0); Nucleated Red Blood Cells % 0.2 %; Red Blood Cells 4.31 10^6/uL (4.5-5.90); Red Cell Distribution Width 16.7 % (11.8-14.3); White Blood Cell 5.7 10^3/uL (4.4-10.8)
[2022-05-28 08:57] VITALS: BP 113/53
[2022-05-28] MEDS ORDERED: GASTROGRAFIN 120 ML SOL ONE (09:26)
[2022-05-28] MEDS: CIPROFLOXACIN 400MG/200ML 200 ML IV SCH (09:27)
[2022-05-28 12:30] VITALS: BP 118/67
[2022-05-28 16:44] VITALS: BP 116/57
[2022-05-28 21:59] VITALS: BP 116/45
[2022-05-29 05:00] VITALS: BP 129/40
[2022-05-29] MEDS: SODIUM CHLOR 0.9% PF (SALINE LOCK) 10ML VIAL/SYR IV SCH ×3 (05:30→21:36)
[2022-05-29] MEDS: metroNIDAZOLE 500MG/100ML 100 ML IV SCH ×3 (05:31→21:35)
[2022-05-29 07:15] LABS: Basophils # (auto) 0 10 ^3/uL (0-0.2); Eosinophils # (auto) 0 10 ^3/uL (0-0.8); Mean Corpuscular Hemoglobin 26.6 pg (28.0-32.0); Mean Corpuscular Hgb Conc. 29.9 g/dL (32.0-36.0); Monocytes # (auto) 0.7 10 ^3/uL (0-1.3); Nucleated Red Blood Cells % 0.1 %
[2022-05-29 07:30] LABS: Albumin 2.4 g/dL (3.4-5.0); Calcium 8.1 mg/dL (8.5-10.1); Potassium 3.7 mmol/L (3.5-5.1)
[2022-05-29 07:35] LABS: BUN/Creatinine Ratio 8.7; Bilirubin, Total 0.4 mg/dL (0.2-1.0); Total Protein 5.7 g/dL (6.4-8.2)
[2022-05-29 08:02] LABS: Basophils % (auto) 0.7 % (0.0-2.0); Eosinophils % (auto) 0.4 % (0.0-7.0); Hematocrit 38.7 % (41.0-53.0); Hemoglobin 11.6 g/dL (13.5-17.5); Lymphocytes # (auto) 0.9 10 ^3/uL (0.4-5.4); Lymphocytes % (auto) 14.5 % (10.0-50.0); Mean Corpuscular Volume 89.1 fL (80.0-100.0); Monocytes % (auto) 11.2 % (0.0-12.0); Neutrophils # (auto) 4.5 10 ^3/uL (1.6-8.6); Neutrophils % (auto) 73.2 % (37.0-80.0); Red Blood Cells 4.34 10^6/uL (4.5-5.90); White Blood Cell 6.1 10^3/uL (4.4-10.8)
[2022-05-29 09:00] VITALS: BP 142/57
[2022-05-29] MEDS: CIPROFLOXACIN 400MG/200ML 200 ML IV SCH (09:01)
[2022-05-29] MEDS: D5W/SOD CHL 0.45% 1,000 ML IV SCH (11:55)
[2022-05-29 13:00] VITALS: BP 118/60
[2022-05-29 14:27] LABS: BUN/Creatinine Ratio 8.5; Calcium 8.1 mg/dL (8.5-10.1)
[2022-05-29 14:45] LABS: Potassium 2.9 mmol/L (3.5-5.1)
[2022-05-29] MEDS ORDERED: POTASSIUM CHL 20 Meq TABLET PO ONE ×2 (16:00→18:30)
[2022-05-29 16:58] VITALS: BP 112/56
[2022-05-29] MEDS: DOCUSATE SOD 100 MG CAP PO SCH (21:36)
[2022-05-29 22:00] VITALS: BP 127/54
[2022-05-30] MEDS: D5W/SOD CHL 0.45% 1,000 ML IV SCH (02:11)
[2022-05-30 05:00] VITALS: BP 118/58
[2022-05-30] MEDS: SODIUM CHLOR 0.9% PF (SALINE LOCK) 10ML VIAL/SYR IV SCH ×3 (06:09→21:39)
[2022-05-30] MEDS: metroNIDAZOLE 500MG/100ML 100 ML IV SCH ×3 (06:11→21:39)
[2022-05-30 07:04] LABS: Basophils # (auto) 0 10 ^3/uL (0-0.2); Basophils % (auto) 0.4 % (0.0-2.0); Eosinophils # (auto) 0 10 ^3/uL (0-0.8); Eosinophils % (auto) 0.3 % (0.0-7.0); Hematocrit 32.1 % (41.0-53.0); Hemoglobin 10.5 g/dL (13.5-17.5); Lymphocytes # (auto) 0.6 10 ^3/uL (0.4-5.4); Lymphocytes % (auto) 9.1 % (10.0-50.0); Mean Corpuscular Hemoglobin 26.2 pg (28.0-32.0); Mean Corpuscular Hgb Conc. 32.6 g/dL (32.0-36.0); Mean Corpuscular Volume 80.3 fL (80.0-100.0); Monocytes # (auto) 0.6 10 ^3/uL (0-1.3); Monocytes % (auto) 9.9 % (0.0-12.0); Neutrophils # (auto) 5.2 10 ^3/uL (1.6-8.6); Neutrophils % (auto) 80.3 % (37.0-80.0); Red Cell Distribution Width 16.9 % (11.8-14.3); White Blood Cell 6.5 10^3/uL (4.4-10.8)
[2022-05-30 08:10] LABS: Potassium 3.4 mmol/L (3.5-5.1)
[2022-05-30 08:18] LABS: Albumin 2.1 g/dL (3.4-5.0); BUN/Creatinine Ratio 5.8; Bilirubin, Total 0.4 mg/dL (0.2-1.0); Calcium 7.6 mg/dL (8.5-10.1); Magnesium 2.4 mg/dL (1.6-2.6); Total Protein 4.9 g/dL (6.4-8.2)
[2022-05-30 08:30] LABS: Phosphorus 0.5 mg/dL (2.5-4.90)
[2022-05-30 09:00] VITALS: BP 129/47
[2022-05-30] MEDS: CIPROFLOXACIN 400MG/200ML 200 ML IV SCH (10:04)
[2022-05-30] MEDS: DOCUSATE SOD 100 MG CAP PO SCH ×2 (10:04→21:39)
[2022-05-30] MEDS ORDERED: cefTRIAXone 1GM/50ML D5W 50 ML IV ONE (11:15)
[2022-05-30] MEDS ORDERED: POTASSIUM PHOSPHATE 26.4 MEQ in SODIUM CHL 0.9% 100 ML IV ONE (11:15)
[2022-05-30 12:16] VITALS: BP 129/47
[2022-05-30] MEDS ORDERED: ALBUTEROL MEDNEB 2.5 mg/3ml NEB ONE ×2 (12:19→18:41)
[2022-05-30] MEDS: ALBUTEROL SULF 2.5 MG/0.5ML(0.5%) NEB SOLN NEB SCH ×2 (12:45→21:06)
[2022-05-30 13:00] VITALS: BP 109/51
[2022-05-30] MEDS ORDERED: FUROSEMIDE 20 MG/2 ML VIAL IV ONE (16:45)
[2022-05-30 17:00] VITALS: BP 99/42
[2022-05-30] MEDS: SODIUM BICARBONATE 50ML VIAL 75 ML in D5W 5% 1,000 ML IV SCH ×2 (17:56→22:00)
[2022-05-30 22:00] VITALS: BP 118/62
[2022-05-31 05:05] VITALS: BP 103/34
[2022-05-31] MEDS: SODIUM CHLOR 0.9% PF (SALINE LOCK) 10ML VIAL/SYR IV SCH ×3 (06:22→21:46)
[2022-05-31] MEDS: metroNIDAZOLE 500MG/100ML 100 ML IV SCH ×3 (06:22→21:50)
[2022-05-31 06:33] LABS: Basophils # (auto) 0 10 ^3/uL (0-0.2); Eosinophils # (auto) 0.1 10 ^3/uL (0-0.8); Eosinophils % (auto) 0.8 % (0.0-7.0); Hemoglobin 9.5 g/dL (13.5-17.5); Lymphocytes # (auto) 0.9 10 ^3/uL (0.4-5.4); Mean Corpuscular Volume 81.8 fL (80.0-100.0); Nucleated Red Blood Cells % 0.1 %
[2022-05-31 06:36] LABS: Basophils % (auto) 0.2 % (0.0-2.0); Hematocrit 29.3 % (41.0-53.0); Lymphocytes % (auto) 12.5 % (10.0-50.0); Mean Corpuscular Hemoglobin 26.5 pg (28.0-32.0); Mean Corpuscular Hgb Conc. 32.4 g/dL (32.0-36.0); Monocytes # (auto) 0.7 10 ^3/uL (0-1.3); Monocytes % (auto) 10.7 % (0.0-12.0); Neutrophils # (auto) 5.2 10 ^3/uL (1.6-8.6); Neutrophils % (auto) 75.8 % (37.0-80.0); Red Blood Cells 3.58 10^6/uL (4.5-5.90); Red Cell Distribution Width 17.1 % (11.8-14.3); White Blood Cell 6.9 10^3/uL (4.4-10.8)
[2022-05-31] MEDS: ALBUTEROL SULF 2.5 MG/0.5ML(0.5%) NEB SOLN NEB SCH ×3 (06:50→18:12)
[2022-05-31 07:03] LABS: Albumin 1.8 g/dL (3.4-5.0); BUN/Creatinine Ratio 4.3; Calcium 7.2 mg/dL (8.5-10.1)
[2022-05-31 07:06] LABS: Bilirubin, Total 0.3 mg/dL (0.2-1.0); Phosphorus 1.7 mg/dL (2.5-4.90); Total Protein 4.5 g/dL (6.4-8.2)
[2022-05-31 07:21] LABS: Potassium 2.9 mmol/L (3.5-5.1)
[2022-05-31] MEDS ORDERED: D5W/SOD CHL 0.45% 1,000 ML IV SCH (07:30)
[2022-05-31] MEDS ORDERED: LOPERAMIDE HCL 2 MG CAP/TAB PO ONE (07:30)
[2022-05-31] MEDS ORDERED: POTASSIUM PHOSPHATE 26.4 MEQ in SODIUM CHL 0.9% 100 ML IV ONE (07:30)
[2022-05-31] MEDS ORDERED: POTASSIUM CHL 20 Meq TABLET PO ONE ×2 (07:30→14:30)
[2022-05-31 09:00] VITALS: BP 104/41
[2022-05-31] MEDS: DOCUSATE SOD 100 MG CAP PO SCH ×2 (09:55→21:45)
[2022-05-31] MEDS: cefTRIAXone 1GM/50ML D5W 50 ML IV SCH (09:55)
[2022-05-31] MEDS ORDERED: VANCOMYCIN PER PHARMACY 0 MG IV SCH (10:00)
[2022-05-31] MEDS ORDERED: ENOXAPARIN SOD 30 MG/0.3 ML SYRINGE SC ONE (10:45)
[2022-05-31] MEDS ORDERED: VANCOMYCIN 500 MG in D5W 5% 100 ML IV ONE (10:45)
[2022-05-31] MEDS: ALBUMIN 25% 100 ML IV SCH ×3 (10:45→23:35)
[2022-05-31] MEDS ORDERED: ALBUTEROL MEDNEB 2.5 mg/3ml NEB ONE (11:23)
[2022-05-31 12:32] LABS: INR 2.26 (0.9-1.15); Partial Thromboplastin Time 52.1 sec (24.6-33.4)
[2022-05-31 12:39] LABS: Phosphorus 1.6 mg/dL (2.5-4.90)
[2022-05-31 13:17] VITALS: BP 93/33
[2022-05-31 13:27] LABS: Potassium 2.9 mmol/L (3.5-5.1)
[2022-05-31] MEDS ORDERED: POTASSIUM CHLORIDE 40 MEQ, LIDOCAINE 1% (LOCAL ANESTH.) 4 ML in SODIUM CHL 0.9% 250 ML IV ONE (14:00)
[2022-05-31] MEDS ORDERED: D5W/SOD CHL 0.45%/KCL 20MEQ 1,000 ML IV ONE (14:00)
[2022-05-31 14:30] LABS: Urine Bacteria FEW /hpf (None Seen); Urine Blood TRACE /uL (Negative); Urine Budding Yeast MODERATE /hpf (None Seen); Urine Hyaline Cast FEW /lpf (0 - 2); Urine Mucus FEW (None Seen); Urine Specific Gravity 1.021 (1.001-1.035); Urine WBC 83 /hpf (0 - 3)
[2022-05-31] MEDS ORDERED: POTASSIUM PHOSPHATE 44 MEQ in D5W 5% 250 ML IV ONE (14:30)
[2022-05-31 14:31] LABS: Sodium Urine 35 mmol/L (40-220)
[2022-05-31 14:35] LABS: Creatinine, Urine 168 mg/dL (30.0-125.0)
[2022-05-31 16:51] VITALS: BP 97/36
[2022-05-31 22:00] VITALS: BP 114/48
[2022-06-01 05:00] VITALS: BP 104/56
[2022-06-01] MEDS: metroNIDAZOLE 500MG/100ML 100 ML IV SCH ×3 (05:34→21:10)
[2022-06-01] MEDS: SODIUM CHLOR 0.9% PF (SALINE LOCK) 10ML VIAL/SYR IV SCH ×3 (05:34→21:10)
[2022-06-01] MEDS ORDERED: ALBUTEROL MEDNEB 2.5 mg/3ml NEB ONE ×3 (05:54→18:00)
[2022-06-01] MEDS ORDERED: VANCOMYCIN 500 MG in D5W 5% 100 ML IV SCH (07:00)
[2022-06-01] MEDS: ALBUTEROL SULF 2.5 MG/0.5ML(0.5%) NEB SOLN NEB SCH ×3 (07:22→19:29)
[2022-06-01 07:42] LABS: Calcium 7.4 mg/dL (8.5-10.1); Magnesium 2.1 mg/dL (1.6-2.6)
[2022-06-01 07:45] LABS: BUN/Creatinine Ratio 3.8; Phosphorus 3.2 mg/dL (2.5-4.90)
[2022-06-01 09:00] VITALS: BP 103/34
[2022-06-01] MEDS: DOCUSATE SOD 100 MG CAP PO SCH ×3 (10:00→21:10)
[2022-06-01] MEDS ORDERED: ENOXAPARIN SOD 40 MG/0.4 ML SYRINGE SC SCH (10:00)
[2022-06-01] MEDS: cefTRIAXone 1GM/50ML D5W 50 ML IV SCH (10:28)
[2022-06-01 13:00] VITALS: BP 104/42
[2022-06-01] MEDS: D5W 5% 1,000 ML IV SCH (13:10)
[2022-06-01 17:00] VITALS: BP 118/54
[2022-06-01 19:43] LABS: INR 2.16 (0.9-1.15); Partial Thromboplastin Time 62.9 sec (24.6-33.4)
[2022-06-01 22:00] VITALS: BP 105/36
[2022-06-02 05:00] VITALS: BP 116/72
[2022-06-02] MEDS: metroNIDAZOLE 500MG/100ML 100 ML IV SCH (05:05)
[2022-06-02] MEDS: SODIUM CHLOR 0.9% PF (SALINE LOCK) 10ML VIAL/SYR IV SCH (05:06)
[2022-06-02] MEDS: D5W 5% 1,000 ML IV SCH (05:45)
[2022-06-02] MEDS ORDERED: ALBUTEROL MEDNEB 2.5 mg/3ml NEB ONE ×2 (05:46→12:12)
[2022-06-02 06:53] LABS: Potassium 3.4 mmol/L (3.5-5.1)
[2022-06-02 06:56] LABS: BUN/Creatinine Ratio 7.5; Calcium 7.5 mg/dL (8.5-10.1)
[2022-06-02] MEDS: ALBUTEROL SULF 2.5 MG/0.5ML(0.5%) NEB SOLN NEB SCH (07:49)
[2022-06-02] MEDS: cefTRIAXone 1GM/50ML D5W 50 ML IV SCH (08:31)
[2022-06-02] MEDS ORDERED: FUROSEMIDE 20 MG/2 ML VIAL IV ONE (09:15)
[2022-06-02] MEDS: DOCUSATE SOD 100 MG CAP PO SCH (09:45)
[2022-06-02] MEDS ORDERED: ENOXAPARIN SOD 30 MG/0.3 ML SYRINGE SC SCH (10:00)
[2022-06-02] MEDS ORDERED: NITROFURANTOIN 100 mg CAP PO SCH (10:00)
[2022-06-02 11:00] VITALS: BP 127/61
[2022-06-02] MEDS ORDERED: VANCOMYCIN 500 MG in D5W 5% 100 ML IV SCH (11:00)
== END 2022-06-02 12:41 | disposition hospice, home (50) | DRG 388 ==
LOC: EDBD 10:53 → ER 10:53 → OVERFLOW 22:49 → TELE-CENTR 05-26 18:12
PROVIDERS: ADMIT Internal Medicine; ATTEND Internal Medicine
PROC: 05H933Z Insertion of Infusion Device into Right Brachial Vein, Percutaneous Approach (ICD-10-PCS; principal; 2022-05-26)
PROC: B54MZZA Ultrasonography of Right Upper Extremity Veins, Guidance (ICD-10-PCS; 2022-05-26)
PROC: 0D9670Z Drainage of Stomach with Drainage Device, Via Natural or Artificial Opening (ICD-10-PCS; 2022-05-28)
DX: K56.609 Unspecified intestinal obstruction, unspecified as to partial versus complete obstruction (principal); E43 Unspecified severe protein-calorie malnutrition; E87.20 Acidosis, unspecified; N17.9 Acute kidney failure, unspecified; E87.0 Hyperosmolality and hypernatremia; I69.354 Hemiplegia and hemiparesis following cerebral infarction affecting left non-dominant side; Z68.1 Body mass index [BMI] 19.9 or less, adult; Z20.822 Contact with and (suspected) exposure to COVID-19; N30.90 Cystitis, unspecified without hematuria; E86.0 Dehydration; E87.6 Hypokalemia; R19.7 Diarrhea, unspecified; I25.10 Atherosclerotic heart disease of native coronary artery without angina pectoris; I50.9 Heart failure, unspecified; J44.9 Chronic obstructive pulmonary disease, unspecified; E78.5 Hyperlipidemia, unspecified; B96.20 Unspecified Escherichia coli [E. coli] as the cause of diseases classified elsewhere; I11.0 Hypertensive heart disease with heart failure; Z88.0 Allergy status to penicillin
CPT/HCPCS: 36415; 36600; 71045; 74176; 74250; 80048; 80053; 81001; 82378; 82570; 82805; 82962; 83605; 83690; 83735; 83880; 83930; 83935; 84100; 84132; 84154; 84300; 84484; 84550; 85025; 85379; 85610; 85730; 87086; 87088; 87186; 87426; 87804; 93005; 94640; 96361; 96374; 96375; 97163; G0378; J0696; J2001; J2405; J3480; J3490; J7060; P9047